=== PATIENT | female | born 1955 | race Caucasian/White ===

== ENCOUNTER 2019-04-24 09:48 | Outpatient (CLI) | payer OTHER, SELFPAY ==
--- NOTE | 2019-04-24 11:00 | NEURO_ITS ---
Patient Number: [id number] Impression: # Complains of left thumb numbness. # Mild evolving left Carpal Tunnel Syndrome. # Left ulnar neuropathy across the elbow. # Normal needle/EMG exam. Nerve Conduction Studies Anti Sensory Summary Table Stim Site NR Peak (ms) P-T Amp (?V) Site1 Site2 Delta-P (ms) Dist (cm) Franko (m/s) Left Median Anti Sensory (2-3nd Digit) Wrist 3.6 57.7 Wrist 2-3nd Digit 3.6 14.0 39 Wrist 3.5 74.1 Wrist 2-3nd Digit 3.6 14.0 39 Left Radial Anti Sensory Run #2 (Base 1st Digit) Wrist 2.7 7.9 Wrist Base 1st Digit 2.7 0.0 Left Ulnar Anti Sensory (5th Digit) Wrist 3.1 10.6 Wrist 5th Digit 3.1 14.0 45 Motor Summary Table Stim Site NR Onset (ms) O-P Amp (mV) Site1 Site2 Delta-0 (ms) Dist (cm) Franko (m/s) Left Median Motor (Abd Poll Brev) Wrist 3.6 4.7 Elbow Wrist 4.7 29.0 62 Elbow 8.3 4.0 Left Ulnar Motor (Abd Dig Minimi) Wrist 2.5 5.7 A Elbow Wrist 5.8 28.0 48 A Elbow 8.3 4.6 B Elbow Wrist 4.0 23.0 58 B Elbow 6.5 5.9 F Wave Studies NR F-Lat (ms) L-R F-Lat (ms) Left Median (Mrkrs) (Abd Poll Brev) 27.27 Left Ulnar (Mrkrs) (Abd Dig Min) 29.23 EMG Side Muscle Nerve Root Ins Act Fibs Amp Dur Recrt Comment Left 1stDorInt Ulnar C8-T1 Nml Nml Nml Nml Nml Left Ext Indicis Radial (Post Int) C7-8 Nml Nml Nml Nml Nml Left Ext Digitorum Radial (Post Int) C7-8 Nml Nml Nml Nml Nml Left BrachioRad Radial C5-6 Nml Nml Nml Nml Nml Left PronatorTeres Median C6-7 Nml Nml Nml Nml Nml Left Abd Poll Brev Median C8-T1 Nml Nml Nml Nml Nml Left ABD Dig Min Ulnar C8-T1 Nml Nml Nml Nml Nml MTDD
== END 2019-04-24 09:49 | disposition home or self-care (01) ==
PROVIDERS: PCP Internal Medicine; Visit Provider Surgery Plastic and Reconstructive Surgery
DX: G56.02 Carpal tunnel syndrome, left upper limb (principal); G56.22 Lesion of ulnar nerve, left upper limb
CPT/HCPCS: 95886; 95909

== ENCOUNTER → 2019-11-09 07:32 | Outpatient (CLI) | payer OTHER, SELFPAY ==
--- NOTE | ~2019-11-09 | US_ITS ---
EXAMINATION: US thyroid DATE: 11/09/2019 07:52 INDICATION: Thyroid nodule. TECHNIQUE: Multiple ultrasound images of the thyroid were obtained. COMPARISON: Thyroid ultrasound 10/02/2018, 03/22/2018 FINDINGS: The right thyroid lobe measures 4.7 x 1.7 x 2.0 cm. The left thyroid lobe measures 4.1 x 1.2 x 1.5 c m. The thyroid demonstrates heterogeneous echogenicity. Vascularity is normal. In the left thyroid l obe, there is a 10 mm solid, hypoechoic, [id number]-[id number] nodule with ill-defined margin without echog enic foci (TI-RADS TR4). In the right thyroid lobe, there is a 9 mm solid, hypoechoic, vhwlw-uhof-cns l nodule with lobulated margin without echogenic foci (TR4). IMPRESSION: 1. Stable thyroid nodules. Thyroid ultrasound is recommended in one year. Reviewed, dictated and finalized at location A.
== END ==
DX: E04.1 Nontoxic single thyroid nodule (principal)
CPT/HCPCS: 76536

== ENCOUNTER 2020-05-11 18:13 | Emergency (ER) | payer OTHER, SELFPAY ==
[2020-05-11 18:45] VITALS: BP 170/87; PULSE 63; RESP 16; TEMP 36.1; O2SAT 97
--- NOTE | 2020-05-11 18:48 | ED.URI ---
HPI - URI/Sore Throat General Chief Complaint: Upper Respiratory Infection Stated Complaint: Runny Nose,Pain over eyes Time Seen by Provider: 05/11/20 18:48 Source: patient, RN notes reviewed and old records reviewed Mode of arrival: ambulatory Limitations: no limitations History of Present Illness HPI Narrative: 65-year-old female presents to the [facility] with complaints of sinus pain and pressure. Has been going on for several weeks. States that she was evaluated in [facility] emergency room was told she had a dental abscess, followed up with a oral surgeon and had evaluation. Patient reports that she had a CT with contrast at [facility] when she was seen in the ER approximately 2 weeks ago and told she had a cyst in her sinuses. Patient denies any fevers. No chest pain or shortness of breath. Just reports that sinuses left maxillary and frontal are very painful. Denies any blurry vision or change in vision. States that she has been taken Keflex with no improvement. Reports that she is seeing a numbers are a [facility] ENT provider rounder about 04 June. No runny nose. No coughing or shortness of breath. Related Data Home Medications Medication Instructions Recorded Confirmed cephalexin 500 mg PO QID 05/11/20 05/11/20 dextroamphetamine-amphetamine 20 mg PO BID 05/11/20 05/11/20 lubiprostone [Amitiza] 24 mcg PO DAILY 05/11/20 05/11/20 omeprazole 20 mg PO DAILY 05/11/20 05/11/20 Allergies Allergy/AdvReac Type Severity Reaction Status Date / Time benzoin Allergy Unknown Unknown Verified 05/11/20 18:38 cefuroxime Allergy Unknown Nausea Verified 05/11/20 18:38 clindamycin Allergy Unknown Nausea Verified 05/11/20 18:38 gatifloxacin Allergy Unknown SORES IN Verified 05/11/20 18:38 MOUTH levofloxacin Allergy Unknown Nausea Verified 05/11/20 18:38 meloxicam Allergy Unknown Unknown Verified 05/11/20 18:38 prednisone Allergy Unknown Other Verified 05/11/20 18:38 Review of Systems Review of Systems: Narrative: CONSTITUTIONAL: Denies fever, chills, or sweats. EYES: Denies visual changes, redness, or discharge. ENT: Denies rhinorrhea, congestion, sore throat, or otalgia. Reports left-sided sinus pain both frontal and max CARDIOVASCULAR: Denies chest pain, palpitations, or edema. RESPIRATORY: Denies cough or dyspnea. MUSCULOSKELETAL: Denies back pain, joint pain, or myalgia. NEUROLOGIC: Denies headache, numbness, or weakness. PSYCHIATRIC: Denies anxiety or depression. All other systems reviewed are negative, except as documented in HPI. [facility] Family History Family History (Reviewed 12/23/19 @ 17:20 by Dinora Cornelius [facility]) Mother Cerebrovascular accident, Onset Age: 86 Patient's mother is Father Family history of malignant neoplasm of bone, Onset Age: 72 Social History Social History (Reviewed 12/23/19 @ 17:20 by Dinora Cornelius [facility]) Smoking status: Never smoker Second hand tobacco smoke exposure: No Smoking end date: 02/21/96 Alcohol intake: current Comments Reports a history of stomach issues and has seen in GI, chronic sinus issues. At the time of my signature, I reviewed and agree with the nursing past medical, surgical, social, and family history. There is no relevant family history pertinent to the patient complaint. Exam Narrative: Exam Narrative: GENERAL: This is a well-nourished, well-developed patient, in no apparent distress. HEAD: normocephalic, atraumatic. EYES: PERRL. Sclera clear/white. Vision is grossly intact. EARS: External ears normal, auditory canals clear and without drainage, TMs normal without perforation. Hearing grossly intact. NOSE: External nose normal with no obvious nasal discharge, nares without redness, no rhinorrhea. Tenderness left sinuses frontal and maxillofacial THROAT: Mucous membranes moist, posterior pharynx clear. NECK: Neck supple, non-tender without lymphadenopathy, masses or thyromegaly. CARDIOVASCULAR: Regular rate and rhy
== END 2020-05-11 19:19 | disposition home or self-care (01) ==
PROVIDERS: Emergency Provider Nurse Practitioner; PCP Internal Medicine
DX: J34.89 Other specified disorders of nose and nasal sinuses (principal); K21.9 Gastro-esophageal reflux disease without esophagitis
CPT/HCPCS: 99213; G0463

== ENCOUNTER 2020-08-13 07:36 | Outpatient (CLI) | payer OTHER, SELFPAY ==
[2020-08-13 07:58] LABS: Basophils Absolute Auto 0.1 K/mm3 (0.0-0.1); Basophils Percent Auto 0.7 % (0.2-1.2); Eosinophils Absolute Auto 0.2 K/mm3 (0-0.3); Eosinophils Percent Auto 3.2 % (0-4.4); Hematocrit 42.4 % (37.0-47.0); Hemoglobin 13.5 g/dL (12.0-15.0); Immature Granulocyte Absolute 0.03 K/mm3 (0.00-0.031); Immature Granulocyte Percent A 0.4 % (0-0.5); Lymphocytes Absolute Auto 2.69 K/mm3 (0.9-3.2); Lymphocytes Percent Auto 37.1 % (18.3-44.2); Mean Corpuscular HGB Conc 31.8 g/dl (32-36); Mean Corpuscular Hemoglobin 29.3 pg (26-34); Mean Platelet Volume 9.6 fl (7.4-10.4); Monocytes Absolute Auto 0.5 K/mm3 (0.1-0.6); Monocytes Percent Auto 7.4 % (2.6-8.5); Neutrophils Absolute Auto 3.7 K/mm3 (1.3-6.7); Neutrophils Percent Auto 51.2 % (45.5-73.1); Platelet Count Result 369 k/mm3 (150-375); Red Blood Count 4.61 M/mm3 (4.2-5.4); Red Cell Distribution Width 13.1 % (11.5-14.5); White Blood Count 7.3 K/mm3 (4.5-10.0)
[2020-08-13 08:09] LABS: Alanine Aminotransferase 18 U/L (4-35); Albumin Level 4.2 g/dL (3.5-5.1); Alkaline Phosphatase 81 U/L (38-126); Anion Gap 3 mmol/L (8-16); Aspartate Amino Transferase 30 U/L (14-36); Bilirubin,Total 0.4 mg/dL (0.2-1.3); Blood Urea Nitrogen 11 mg/dL (7-17); Calcium 9.1 mg/dL (8.4-10.2); Carbon Dioxide 32 mmol/L (22-30); Chloride 105 mmol/L (98-107); Cholesterol 194 mg/dL (0-200); Estimated Glomerular Filt Rate > 60; Glucose 99 mg/dL (65-105); HDL Direct 69 mg/dL; Potassium 4.4 mmol/L (3.4-5.0); Sodium 140 mmol/L (137-145); Triglycerides 88 mg/dL (<150)
[2020-08-13 08:20] LABS: LDL Cholesterol Direct 84 mg/dL
[2020-08-13 09:00] LABS: Free T4 Free Thyroxine 0.87 ng/mL (0.78-2.19)
[2020-08-13 09:16] LABS: Folic Acid 9.8 ng/mL (2.76->20)
== END 2020-08-13 07:37 | disposition home or self-care (01) ==
LOC: ANHLAB 07:41
PROVIDERS: PCP Internal Medicine; Visit Provider Internal Medicine
DX: R53.83 Other fatigue (principal); E03.9 Hypothyroidism, unspecified; Z00.00 Encounter for general adult medical examination without abnormal findings
CPT/HCPCS: 36415; 80053; 80061; 82607; 82746; 84439; 84443; 85025

== ENCOUNTER 2020-08-30 10:16 | Emergency (ER) | payer OTHER, SELFPAY ==
--- NOTE | ~2020-08-30 | XR_ITS ---
EXAMINATION: XR chest 2V DATE: 08/30/2020 11:06 INDICATION: Cough. TECHNIQUE: Frontal and lateral views of the chest were obtained. COMPARISON: Chest single view 07/06/2018, chest CT 09/16/2016 FINDINGS: The chest demonstrates clear lungs without pneumonia, pleural effusion, or pneumothorax. Th e heart size is normal. IMPRESSION: 1. No acute cardiopulmonary disease. Reviewed, dictated and finalized at location A.
[2020-08-30 10:38] VITALS: BP 146/71; PULSE 82; RESP 18; TEMP 37.5; O2SAT 98
--- NOTE | 2020-08-30 10:51 | ED.GENADULT ---
HPI - General Adult General Chief complaint: Upper Respiratory Infection Stated complaint: Cough,Sore Throat Source: patient Mode of arrival: ambulatory Limitations: no limitations History of Present Illness HPI narrative: Patient presents for evaluation of respiratory symptoms. She indicates that 3 days ago she developed a sore throat and right-sided otalgia. The following day she developed a nonproductive cough. She denies any shortness of breath but has experienced some pleuritic chest pain. She reports chills without fever. She also has experienced nausea without vomiting or diarrhea. She indicates she has noted a burning sensation to both nares, light sensitivity, sinus congestion and yellow/green rhinorrhea. No history of Covid. She states that she has received her Covid vaccine back in February of this year. No tobacco use. She states that her niece was visiting from [place] and had some sinus congestion. Her niece told her that her symptoms were likely related to allergies. She is unsure whether her niece has received her Covid vaccine. Patient has been taking some [place] day/nighttime for symptoms. She has not noticed a particular improvement in her symptoms thereafter. Related Data Home Medications Medication Instructions Recorded Confirmed dextroamphetamine-amphetamine 20 mg PO BID 05/11/20 08/30/20 lubiprostone [Amitiza] 24 mcg PO DAILY 05/11/20 08/30/20 omeprazole 20 mg PO DAILY 05/11/20 08/30/20 Allergies Allergy/AdvReac Type Severity Reaction Status Date / Time benzoin Allergy Unknown Unknown Verified 08/17/20 15:06 cefuroxime Allergy Unknown Nausea Verified 08/17/20 15:06 clindamycin Allergy Unknown Nausea Verified 08/17/20 15:06 gatifloxacin Allergy Unknown SORES IN Verified 08/17/20 15:06 MOUTH levofloxacin Allergy Unknown Nausea Verified 08/17/20 15:06 meloxicam Allergy Unknown Unknown Verified 08/17/20 15:06 prednisone Allergy Unknown Other Verified 08/17/20 15:06 Review of Systems Review of Systems: Narrative: CONSTITUTIONAL: Reports chills. Denies fever or sweats. EYES: Reports burning sensation to her eyes with associated redness, as well as photophobia. Denies discharge from her eyes ENT: Reports sinus congestion, yellow/green rhinorrhea, right-sided otalgia and sore throat. CARDIOVASCULAR: Reports pleuritic chest pain. Denies chest pain otherwise, palpitations, or edema. RESPIRATORY: Reports cough. Denies shortness of breath GASTROINTESTINAL: Reports nausea without vomiting. Denies abdominal pain or diarrhea GENITOURINARY: Denies dysuria or hematuria. SKIN: Denies rash or itching. MUSCULOSKELETAL: Denies back pain, joint pain, or myalgia. NEUROLOGIC: Denies headache, numbness, dizziness, or weakness. PSYCHIATRIC: Denies anxiety or depression. PMFSH Past Medical History Medical History (Updated 08/30/20 @ 11:22 by Fredy Car, KAROLINE, ) Esophageal reflux disease Hypothyroidism Surgical History Surgical History (Updated 08/30/20 @ 10:56 by JAN QuanP, ) No pertinent past surgical history Family History Family History Mother Cerebrovascular accident, Onset Age: 86 Patient's mother is Father Family history of malignant neoplasm of bone, Onset Age: 72 Social History Social History Smoking status: Never smoker Second hand tobacco smoke exposure: No Smoking end date: 02/21/96 Alcohol intake: current Exam Narrative: Exam Narrative: GENERAL: Well-appearing, well-nourished, and in no acute distress. HEAD: Normocephalic, atraumatic. EYES: PERRLA and EOMI. ENT: Nares clear, no rhinorrhea or epistaxis. Mucous membranes moist. Oropharynx without tonsillar hypertrophy exudate or other lesions. Right tympanic membrane is erythematous without bulging or retraction. Left TM appears normal NECK: Supple. No
== END 2020-08-30 11:33 | disposition home or self-care (01) ==
PROVIDERS: Emergency Provider Nurse Practitioner; PCP Internal Medicine
DX: J02.0 Streptococcal pharyngitis (principal); Z20.822 Contact with and (suspected) exposure to COVID-19
CPT/HCPCS: 71046; 87426; 87880; 99213; C9803; G0463

== ENCOUNTER 2020-09-26 17:04 | Emergency (ER) | payer OTHER, SELFPAY ==
[2020-09-26 17:14] VITALS: BP 139/85; PULSE 65; RESP 16; TEMP 36.2; O2SAT 100
--- NOTE | 2020-09-26 18:23 | ED.GENADULT ---
HPI - General Adult General Chief complaint: Headache Stated complaint: Sinus Time Seen by Provider: 09/26/20 18:08 Source: patient, RN notes reviewed and old records reviewed Mode of arrival: ambulatory Limitations: no limitations History of Present Illness HPI narrative: Patient presents today complaining of left-sided sinus pressure and nasal congestion x1+ weeks. Denies fever, cough, sore throat. She also reports history of frequent nosebleeds. She has been using a humidifier, saline spray, Flonase, Sudafed without much relief. She has recently taken Augmentin for strep throat approximately 1 month ago. MD complaint: Sinus pressure and pain Related Data Home Medications Medication Instructions Recorded Confirmed dextroamphetamine-amphetamine 20 mg PO BID 05/11/20 09/26/20 lubiprostone [Amitiza] 24 mcg PO DAILY 05/11/20 09/26/20 omeprazole 20 mg PO DAILY 05/11/20 09/26/20 Allergies Allergy/AdvReac Type Severity Reaction Status Date / Time benzoin Allergy Unknown Unknown Verified 09/26/20 17:29 cefuroxime Allergy Unknown Nausea Verified 09/26/20 17:29 clindamycin Allergy Unknown Nausea Verified 09/26/20 17:29 gatifloxacin Allergy Unknown SORES IN Verified 09/26/20 17:29 MOUTH levofloxacin Allergy Unknown Nausea Verified 09/26/20 17:29 meloxicam Allergy Unknown Unknown Verified 09/26/20 17:29 prednisone Allergy Unknown Other Verified 09/26/20 17:29 Review of Systems Review of Systems: CONSTITUTIONAL: Denies body aches, fever, chills, or sweats. EYES: Denies visual changes, redness, or discharge. ENT: Denies rhinorrhea, sore throat, or otalgia.+ Congestion and sinus pressure CARDIOVASCULAR: Denies chest pain, palpitations, or edema. RESPIRATORY: Denies cough or dyspnea. GASTROINTESTINAL: Denies abdominal pain, nausea, vomiting, or diarrhea. GENITOURINARY: Denies dysuria or hematuria. SKIN: Denies rash, itching, or wounds. MUSCULOSKELETAL: Denies back pain, joint pain, or myalgia. NEUROLOGIC: Denies headache, numbness, tingling, or weakness. PSYCH: Denies depression or anxiety. [facility] Past Medical History Medical History Esophageal reflux disease Hypothyroidism Surgical History Surgical History No pertinent past surgical history Family History Family History Mother Cerebrovascular accident, Onset Age: 86 Patient's mother is Father Family history of malignant neoplasm of bone, Onset Age: 72 Social History Social History Smoking status: Never smoker Second hand tobacco smoke exposure: No Smoking end date: 02/21/96 Alcohol intake: current Comments At time of signature, I have reviewed and agree with nursing past medical, surgical, social and family history unless otherwise noted. Please see nursing chart for further information. There is no relevant family history pertinent to the presenting complaint Exam Narrative: GENERAL: Well-appearing, well-nourished, and in no acute distress. HEAD: Normocephalic, atraumatic. EYES: EOMI. No redness or drainage. Conjunctivae normal. ENT: Mucous membranes pink and moist. Nares clear. No rhinorrhea. Dried blood in the left nare. Bilateral mildly erythematous and edematous nasal turbinates. TMs normal bilaterally. Throat normal. Uvula midline. Left frontal and maxillary sinus tenderness. NECK: Normal AROM. Supple. No lymphadenopathy. CHEST: No respiratory distress. Clear to auscultation. HEART: Regular rate and rhythm. No murmur appreciated. Normal peripheral pulses. EXTREMITIES: Normal range of motion. No edema. SKIN: Warm, dry, no rash. Capillary refill normal. Normal skin turgor. NEURO: No focal deficits. Alert and oriented x3. Gait steady. PSYCH: Normal affect. No signs of depre
== END 2020-09-26 18:46 | disposition home or self-care (01) ==
PROVIDERS: Emergency Provider Nurse Practitioner; PCP Internal Medicine
DX: J01.90 Acute sinusitis, unspecified (principal); K21.9 Gastro-esophageal reflux disease without esophagitis; E03.9 Hypothyroidism, unspecified
CPT/HCPCS: 99213; G0463

== ENCOUNTER 2020-10-02 11:48 | Outpatient (CLI) | payer OTHER, SELFPAY ==
--- NOTE | ~2020-10-02 | XR_ITS ---
EXAMINATION: XR shoulder LT min 2V DATE: 10/02/2020 12:20 INDICATION: Sprain of ligaments of cervical spine, initial encounter. TECHNIQUE: 4 views of left shoulder were obtained. COMPARISON: None. FINDINGS: There is levoscoliosis of thoracic spine. No fracture. There is mild osteoarthritis of jenifer ohumeral joint and severe osteoarthritis of acromioclavicular joint IMPRESSION: 1. Polyarticular osteoarthritis. Reviewed, dictated and finalized at location A.
--- NOTE | ~2020-10-02 | XR_ITS ---
XR cervical spine 4-5V DATE: 10/02/2020 12:20 INDICATION: Cervical spine ligament sprain TECHNIQUE: AP, open-mouth, odontoid, lateral, swimmer views COMPARISON: 03/16/2018 MR cervical spine FINDINGS: Diffuse osteopenia. C1 and C2 are normally aligned and the odontoid process is intact. No fracture or dislocation, locked facet or prevertebral soft tissue swelling. There is minimal anterolisthesis at C2-3 and C3-4. There is moderate degenerative disc disease and minimal retrolisthesis at C4-5. There is severe degenerative disc disease and minimal retrolisthesis at C5-6. There is very severe degenerative disc disease at C6-7. Uncovertebral joint spurring is noted, most pronounced at C6-7. There is mild dextro scoliosis of the cervical spine and mild to moderate levoscoliosis of the upper thoracic spine. IMPRESSION: Prominent cervical spondylosis; no fracture is detected Reviewed, dictated and finalized at location A.
== END 2020-10-02 11:49 | disposition home or self-care (01) ==
PROVIDERS: PCP Internal Medicine; Visit Provider Physician Assistant
DX: S13.4XXA Sprain of ligaments of cervical spine, initial encounter (principal); M41.9 Scoliosis, unspecified; M47.812 Spondylosis without myelopathy or radiculopathy, cervical region; M19.012 Primary osteoarthritis, left shoulder
CPT/HCPCS: 72050; 73030

== ENCOUNTER 2021-03-11 07:19 | Outpatient (CLI) | payer OTHER, SELFPAY ==
[2021-03-11 07:42] LABS: Basophils Absolute Auto 0.1 K/mm3 (0.0-0.1); Basophils Percent Auto 0.8 % (0.2-1.2); Eosinophils Absolute Auto 0.2 K/mm3 (0-0.3); Eosinophils Percent Auto 3.4 % (0-4.4); Hematocrit 41.4 % (37.0-47.0); Hemoglobin 13.5 g/dL (12.0-15.0); Immature Granulocyte Absolute 0.01 K/mm3 (0.00-0.031); Immature Granulocyte Percent A 0.2 % (0-0.5); Lymphocytes Absolute Auto 2.25 K/mm3 (0.9-3.2); Lymphocytes Percent Auto 36.5 % (18.3-44.2); Mean Corpuscular HGB Conc 32.6 g/dl (32-36); Mean Corpuscular Hemoglobin 29.2 pg (26-34); Mean Corpuscular Volume 89.4 fl (80-100); Mean Platelet Volume 9.5 fl (7.4-10.4); Monocytes Absolute Auto 0.5 K/mm3 (0.1-0.6); Monocytes Percent Auto 7.6 % (2.6-8.5); Neutrophils Absolute Auto 3.2 K/mm3 (1.3-6.7); Neutrophils Percent Auto 51.5 % (45.5-73.1); Platelet Count Result 384 k/mm3 (150-375); Red Blood Count 4.63 M/mm3 (4.2-5.4); Red Cell Distribution Width 12.9 % (11.5-14.5); White Blood Count 6.2 K/mm3 (4.5-10.0)
[2021-03-11 08:01] LABS: Alanine Aminotransferase 21 U/L (4-35); Albumin Level 4.3 g/dL (3.5-5.1); Alkaline Phosphatase 88 U/L (38-126); Anion Gap 6 mmol/L (8-16); Aspartate Amino Transferase 28 U/L (14-36); Bilirubin,Total 0.6 mg/dL (0.2-1.3); Blood Urea Nitrogen 12 mg/dL (7-17); Carbon Dioxide 31 mmol/L (22-30); Chloride 104 mmol/L (98-107); Cholesterol 187 mg/dL (0-200); Estimated Glomerular Filt Rate > 60; Glucose 100 mg/dL (65-110); HDL Direct 58 mg/dL; Potassium 4.3 mmol/L (3.4-5.0); Sodium 141 mmol/L (137-145); Triglycerides 109 mg/dL (<150)
[2021-03-11 08:12] LABS: LDL Cholesterol Direct 94 mg/dL
[2021-03-11 09:10] LABS: Free T4 Free Thyroxine 0.82 ng/mL (0.78-2.19)
== END 2021-03-11 07:20 | disposition home or self-care (01) ==
LOC: ANHLAB 07:21
PROVIDERS: PCP Internal Medicine; Visit Provider Internal Medicine
DX: E03.9 Hypothyroidism, unspecified (principal); R53.83 Other fatigue; Z00.00 Encounter for general adult medical examination without abnormal findings
CPT/HCPCS: 36415; 80053; 80061; 82607; 82746; 84439; 84443; 85025

== ENCOUNTER 2021-03-21 08:02 | Emergency (ER) | payer OTHER, SELFPAY ==
--- NOTE | 2021-03-21 08:07 | ED.EAR ---
HPI - Ear Problem General Chief complaint: Upper Respiratory Infection Stated complaint: ear pain Time Seen by Provider: 03/21/21 08:10 Source: patient, RN notes reviewed and old records reviewed Mode of arrival: ambulatory Limitations: no limitations History of Present Illness HPI Narrative: 66-year-old female who presents to [facility] with complaints of left ear pain, sinus drainage with soreness to the left side of her throat with some lymphadenopathy on the left side for about 1 week duration. Patient reports that she has been taking some Zyrtec and used some antibiotic ear drops to her left ear that she had left over from the past. Patient states that she feels like she has something in the left side of her throat that is irritating her swallowing. Patient denies any fevers chills or sweats, has no body aches, has had COVID immunizations and booster and also has had her flu shot this season. MD Complaint: ear pain Location: left ear Treatment prior to arrival: eardrops Related Data Home Medications Medication Instructions Recorded Confirmed dextroamphetamine-amphetamine 20 mg PO BID 05/11/20 03/21/21 lubiprostone [Amitiza] 24 mcg PO DAILY 05/11/20 03/21/21 Allergies Allergy/AdvReac Type Severity Reaction Status Date / Time benzoin Allergy Unknown Unknown Verified 03/21/21 08:19 cefuroxime Allergy Unknown Nausea Verified 03/21/21 08:19 clindamycin Allergy Unknown Nausea Verified 03/21/21 08:19 gatifloxacin Allergy Unknown SORES IN Verified 03/21/21 08:19 MOUTH levofloxacin Allergy Unknown Nausea Verified 03/21/21 08:19 meloxicam Allergy Unknown Unknown Verified 03/21/21 08:19 prednisone Allergy Unknown Other Verified 03/21/21 08:19 Review of Systems Review of Systems: CONSTITUTIONAL: Denies fever, chills, or sweats. EYES: Denies visual changes, redness, or discharge. ENT: Positive for rhinorrhea, congestion,left sided sore throat, positive left ear otalgia. CARDIOVASCULAR: Denies chest pain, palpitations, or edema. RESPIRATORY: Denies cough or dyspnea. GASTROINTESTINAL: Denies abdominal pain, nausea, vomiting, or diarrhea. GENITOURINARY: Denies dysuria or hematuria. SKIN: Denies rash or itching. MUSCULOSKELETAL: Denies back pain, joint pain, or myalgia. NEUROLOGIC: Denies headache, numbness, or weakness. PSYCHIATRIC: Positive history anxiety or depression. All systems reviewed & are unremarkable except as noted in HPI and below PMFSH Past Medical History Medical History (Updated 03/21/21 @ 10:36 by Kenna Schreiber NP) ADD (attention deficit disorder) Esophageal reflux disease Hypothyroidism IBS (irritable bowel syndrome) Pneumonia Surgical History Surgical History (Updated 03/21/21 @ 10:35 by Kenna Schreiber NP) H/O bladder repair surgery History of carpal tunnel release with ulnar nerve release on right History of hysterectomy History of medial meniscus repair of right knee S/P excision of lipoma from left clavicale area Family History Family History Mother Cerebrovascular accident, Onset Age: 86 Patient's mother is Father Family history of malignant neoplasm of bone, Onset Age: 72 Social History Social History (Updated 03/21/21 @ 08:32 by Kenna Schreiber NP) Smoking status: Never smoker Second hand tobacco smoke exposure: No Smoking end date: 02/21/96 Alcohol intake: current Substance use: never Living arrangements: alone Gender identity (if verbalized by the patient): Female Comments At time of signature, agree with nursing past medical, surgical, social and family history. There is no relevant family history pertinent to the presenting complaint Exam Narrative: GENERAL: Well-appearing, well-nourished, and in no acute distress. HEAD: Normocephalic, atraumatic. EYES: PERRLA and EOMI. ENT: Nares red and irritated with clear rhinorrhea no epistaxis. Mucous membranes moist. TMs nor
[2021-03-21 08:10] VITALS: BP 155/76; PULSE 62; RESP 16; TEMP 36.4; O2SAT 99
== END 2021-03-21 09:10 | disposition home or self-care (01) ==
PROVIDERS: Emergency Provider Registered Nurse; PCP Internal Medicine
DX: H92.02 Otalgia, left ear (principal); J32.9 Chronic sinusitis, unspecified; E03.9 Hypothyroidism, unspecified; K21.9 Gastro-esophageal reflux disease without esophagitis; F98.8 Other specified behavioral and emotional disorders with onset usually occurring in childhood and adolescence
CPT/HCPCS: 87081; 87880; 99213; G0463

== ENCOUNTER 2021-05-10 19:18 | Emergency (ER) | payer OTHER, SELFPAY ==
[2021-05-10 19:29] VITALS: BP 167/71; PULSE 61; RESP 16; TEMP 36.7; O2SAT 100
[2021-05-10 19:30] VITALS: BP 167/71; PULSE 61; RESP 16; TEMP 36.7; O2SAT 100
--- NOTE | 2021-05-10 19:35 | ED.SKABFB ---
HPI - Skin/Abscess/Foreign Bdy General Chief complaint: Wound/Laceration Stated complaint: Isect Bite Time Seen by Provider: 05/10/21 19:30 Source: patient and RN notes reviewed Mode of arrival: ambulatory Limitations: no limitations History of Present Illness HPI narrative: 66-year-old female presents to the [facility] with complaints of an insect bite to her left upper abdomen. States that she was in the shower when she noticed a bubble. At that time in the shower she popped it and noticed white and clear discharge. Area cleaned with soap and water and Neosporin applied. complaint: insect bite/sting Related Data Home Medications Medication Instructions Recorded Confirmed dextroamphetamine-amphetamine 20 mg PO BID 05/11/20 03/21/21 lubiprostone [Amitiza] 24 mcg PO DAILY 05/11/20 03/21/21 mometasone TOPICAL 05/10/21 prednisolone acetate drp 05/10/21 Allergies Allergy/AdvReac Type Severity Reaction Status Date / Time benzoin Allergy Unknown Unknown Verified 03/21/21 08:19 cefuroxime Allergy Unknown Nausea Verified 03/21/21 08:19 clindamycin Allergy Unknown Nausea Verified 03/21/21 08:19 gatifloxacin Allergy Unknown SORES IN Verified 03/21/21 08:19 MOUTH levofloxacin Allergy Unknown Nausea Verified 03/21/21 08:19 meloxicam Allergy Unknown Unknown Verified 03/21/21 08:19 prednisone Allergy Unknown Other Verified 03/21/21 08:19 Review of Systems Review of Systems: All systems reviewed & are unremarkable except as noted in HPI and below Constitutional: Constitutional: Reports no additional constitutional complaints, Denies chills and Denies fever(s) Eyes: Eyes: Reports no additional eye complaints ENT: Reports system reviewed and no additional complaints, except as documented and Denies sore throat Cardiovascular: Cardiovascular: Reports no additional cardiovascular complaints and Denies chest pain Respiratory: Respiratory: Reports no additional respiratory complaints, Denies cough and Denies dyspnea Gastrointestinal: Gastrointestinal: Reports no additional gastrointestinal complaints and Denies abdominal pain Musculoskeletal: Musculoskeletal: Reports no additional musculoskeletal complaints Integumentary/Breasts: Skin/Breast: Reports as per HPI, Reports pruritus and Reports erythema Neurologic: Reports system reviewed and no additional complaints, except as documented and Denies dizziness Psychiatric: Psychiatric: Reports no additional psychiatric complaints Allergic/Immunologic: Allergic/Immunologic: Reports no additional allergic/immunologic complaints [facility] Past Medical History Medical History (Updated 05/10/21 @ 19:38 by Alissa Marie APRN) ADD (attention deficit disorder) Esophageal reflux disease Hypothyroidism IBS (irritable bowel syndrome) Pneumonia Surgical History Surgical History H/O bladder repair surgery History of carpal tunnel release with ulnar nerve release on right History of hysterectomy History of medial meniscus repair of right knee S/P excision of lipoma from left clavicale area Family History Family History Mother Cerebrovascular accident, Onset Age: 86 Patient's mother is Father Family history of malignant neoplasm of bone, Onset Age: 72 Social History Social History Smoking status: Never smoker Second hand tobacco smoke exposure: No Smoking end date: 02/21/96 Alcohol intake: current Substance use: never Gender identity (if verbalized by the patient): Female Comments At the time of my signature, I reviewed and agree with the nursing past medical, surgical, social, and family history. There is no relevant family history pertinent to the patient complaint. Exam Const: General: healthy appearing, no acute distress and alert Nutritional Appearance: well no
== END 2021-05-10 19:43 | disposition home or self-care (01) ==
PROVIDERS: Emergency Provider Nurse Practitioner; PCP Internal Medicine
DX: S30.861A Insect bite (nonvenomous) of abdominal wall, initial encounter (principal); W57.XXXA Bitten or stung by nonvenomous insect and other nonvenomous arthropods, initial encounter; E03.9 Hypothyroidism, unspecified; K21.9 Gastro-esophageal reflux disease without esophagitis; F98.8 Other specified behavioral and emotional disorders with onset usually occurring in childhood and adolescence
CPT/HCPCS: 99213; G0463

== ENCOUNTER 2021-05-15 09:57 | Emergency (ER) | payer OTHER, SELFPAY ==
[2021-05-15 10:05] VITALS: BP 146/90; PULSE 65; RESP 16; TEMP 36.6; O2SAT 99
--- NOTE | 2021-05-15 10:36 | ED.EAR ---
HPI - Ear Problem General Chief complaint: Ear Stated complaint: EAR PAIN Time Seen by Provider: 05/15/21 10:36 Source: patient Mode of arrival: ambulatory Limitations: no limitations History of Present Illness HPI Narrative: 66-year-old female presents with complaint of pain to left ear for 1 week. Reports that it feels like something is moving into left ear and when she posters around her left ear and makes pain worse. She was seen ENT 2 months ago with similar complaints. At that time she was told that she had a scab in her ear from recent trauma or ear infection that the ENT would not remove for her. Patient has a ENT May 24. No recent fever, no change to hearing. All systems reviewed and negative. Related Data Home Medications Medication Instructions Recorded Confirmed dextroamphetamine-amphetamine 20 mg PO BID 05/11/20 05/15/21 lubiprostone [Amitiza] 24 mcg PO DAILY 05/11/20 05/15/21 prednisolone acetate 3 drp RIGHT EYE DAILY 05/10/21 05/15/21 cetirizine [Zyrtec] 10 mg PO DAILY 05/15/21 05/15/21 pseudoephedrine HCl [Sudafed 12 120 mg PO Q12H 05/15/21 05/15/21 Hour] Allergies Allergy/AdvReac Type Severity Reaction Status Date / Time benzoin Allergy Unknown Unknown Verified 05/15/21 10:24 cefuroxime Allergy Unknown Nausea Verified 05/15/21 10:24 clindamycin Allergy Unknown Nausea Verified 05/15/21 10:24 gatifloxacin Allergy Unknown SORES IN Verified 05/15/21 10:24 MOUTH levofloxacin Allergy Unknown Nausea Verified 05/15/21 10:24 meloxicam Allergy Unknown Unknown Verified 05/15/21 10:24 prednisone Allergy Unknown Other Verified 05/15/21 10:24 Review of Systems Review of Systems: CONSTITUTIONAL: Denies fever, chills, or sweats. EYES: Denies visual changes, redness, or discharge. ENT: Denies rhinorrhea, congestion, sore throat. Reports left ear pain CARDIOVASCULAR: Denies chest pain, palpitations, or edema. RESPIRATORY: Denies cough or dyspnea. GASTROINTESTINAL: Denies abdominal pain, nausea, vomiting, or diarrhea. GENITOURINARY: Denies dysuria or hematuria. SKIN: Denies rash or itching. MUSCULOSKELETAL: Denies back pain, joint pain, or myalgia. NEUROLOGIC: Denies headache, numbness, or weakness. PSYCHIATRIC: Denies anxiety or depression. All other systems reviewed are negative, except as documented in HPI. [facility] Past Medical History Medical History (Updated 05/15/21 @ 10:47 by Sally Lundberg NP) ADD (attention deficit disorder) Esophageal reflux disease Hypothyroidism IBS (irritable bowel syndrome) Pneumonia Surgical History Surgical History H/O bladder repair surgery History of carpal tunnel release with ulnar nerve release on right History of hysterectomy History of medial meniscus repair of right knee S/P excision of lipoma from left clavicale area Family History Family History Mother Cerebrovascular accident, Onset Age: 86 Patient's mother is Father Family history of malignant neoplasm of bone, Onset Age: 72 Social History Social History Smoking status: Never smoker Second hand tobacco smoke exposure: No Smoking end date: 02/21/96 Alcohol intake: current Substance use: never Gender identity (if verbalized by the patient): Female Comments At time of signature, agree with nursing past medical, surgical, social and family history. There is no relevant family history pertinent to the presenting complaint. Exam Narrative: GENERAL: This is a well-nourished, well-developed patient, in no apparent distress. HEAD: normocephalic, atraumatic. EYES: PERRL. Sclera clear/white. Vision is grossly intact. EARS: External ears normal, auditory canals clear and without drainage. There is fluid to both TMs without retraction or bulging. There is no perforation. There is no scab to left ear can
== END 2021-05-15 10:55 | disposition home or self-care (01) ==
PROVIDERS: Emergency Provider Nurse Practitioner Family; PCP Internal Medicine
DX: H65.03 Acute serous otitis media, bilateral (principal); K21.9 Gastro-esophageal reflux disease without esophagitis; E03.9 Hypothyroidism, unspecified; F98.8 Other specified behavioral and emotional disorders with onset usually occurring in childhood and adolescence
CPT/HCPCS: 99213; G0463

== ENCOUNTER 2021-07-08 08:42 | Emergency (ER) | payer OTHER, SELFPAY ==
[2021-07-08 08:53] VITALS: BP 144/83; PULSE 74; RESP 16; TEMP 36.8; O2SAT 100
--- NOTE | 2021-07-08 08:53 | ED.URI ---
HPI - URI/Sore Throat General Chief Complaint: Upper Respiratory Infection Stated Complaint: Cough,Sore Throat Time Seen by Provider: 07/08/21 08:53 Source: patient Mode of arrival: ambulatory Limitations: no limitations History of Present Illness HPI Narrative: 66-year-old female presents with complaint of nasal congestion, postnasal drainage, ear pain, tickle in throat with dry cough. Reports sore throat with coughing. Afebrile. Denies fatigue. Denies chest pain and shortness of breath. Reports symptoms for approximately 2 to 3 days. Did have to call off work and needs a COVID test to return to work. Taking Sudafed to treat her symptoms. All systems reviewed and negative except as noted above. Related Data Home Medications Medication Instructions Recorded Confirmed dextroamphetamine-amphetamine 20 mg PO BID 05/11/20 07/08/21 lubiprostone [Amitiza] 24 mcg PO DAILY 05/11/20 07/08/21 prednisolone acetate 3 drp RIGHT EYE DAILY 05/10/21 07/08/21 Allergies Allergy/AdvReac Type Severity Reaction Status Date / Time benzoin Allergy Unknown Unknown Verified 07/08/21 08:54 cefuroxime Allergy Unknown Nausea Verified 07/08/21 08:54 clindamycin Allergy Unknown Nausea Verified 07/08/21 08:54 gatifloxacin Allergy Unknown SORES IN Verified 07/08/21 08:54 MOUTH levofloxacin Allergy Unknown Nausea Verified 07/08/21 08:54 meloxicam Allergy Unknown Unknown Verified 07/08/21 08:54 prednisone Allergy Unknown Other Verified 07/08/21 08:54 Review of Systems Review of Systems: CONSTITUTIONAL: Denies fever, chills, or sweats. EYES: Denies visual changes, redness, or discharge. ENT: Reports rhinorrhea, congestion, sore throat and bilateral otalgia. CARDIOVASCULAR: Denies chest pain, palpitations, or edema. RESPIRATORY: Reports cough. Denies dyspnea. GASTROINTESTINAL: Denies abdominal pain, nausea, vomiting, or diarrhea. GENITOURINARY: Denies dysuria or hematuria. SKIN: Denies rash or itching. MUSCULOSKELETAL: Denies back pain, joint pain, or myalgia. NEUROLOGIC: Denies headache, numbness, or weakness. PSYCHIATRIC: Denies anxiety or depression. All other systems reviewed are negative, except as documented in HPI. [facility] Past Medical History Medical History (Updated 07/08/21 @ 09:24 by Sally Lundberg NP) ADD (attention deficit disorder) Esophageal reflux disease Hypothyroidism IBS (irritable bowel syndrome) Pneumonia Surgical History Surgical History H/O bladder repair surgery History of carpal tunnel release with ulnar nerve release on right History of hysterectomy History of medial meniscus repair of right knee S/P excision of lipoma from left clavicale area Family History Family History Mother Cerebrovascular accident, Onset Age: 86 Patient's mother is Father Family history of malignant neoplasm of bone, Onset Age: 72 Social History Social History Smoking status: Never smoker Second hand tobacco smoke exposure: No Smoking end date: 02/21/96 Alcohol intake: current Substance use: never Gender identity (if verbalized by the patient): Female Comments At time of signature, agree with nursing past medical, surgical, social and family history. There is no relevant family history pertinent to the presenting complaint. Exam Narrative: GENERAL: This is a well-nourished, well-developed patient, in no apparent distress. HEAD: normocephalic, atraumatic. EYES: PERRL. Sclera clear/white. Vision is grossly intact. EARS: External ears normal, auditory canals clear and without drainage, fluid to bilateral TMs with mild erythema to left TM. No perforation. NOSE: External nose normal with clear nasal drainage with erythema, no significant swelling to nares. THROAT: Mucous membranes moist, erythema to posterior pharynx with clear po
[2021-07-08 08:57] VITALS: BP 144/83; PULSE 74; RESP 16; TEMP 36.8; O2SAT 100
== END 2021-07-08 09:30 | disposition home or self-care (01) ==
PROVIDERS: Emergency Provider Nurse Practitioner Family; PCP Internal Medicine
DX: H65.02 Acute serous otitis media, left ear (principal); J01.90 Acute sinusitis, unspecified; Z20.822 Contact with and (suspected) exposure to COVID-19; F98.8 Other specified behavioral and emotional disorders with onset usually occurring in childhood and adolescence; K21.9 Gastro-esophageal reflux disease without esophagitis; E03.9 Hypothyroidism, unspecified; Z87.891 Personal history of nicotine dependence
CPT/HCPCS: 87426; 99213; C9803; G0463

== ENCOUNTER 2021-08-15 08:02 | Emergency (ER) | payer OTHER, SELFPAY ==
[2021-08-15 08:12] VITALS: BP 138/82; PULSE 89; RESP 16; TEMP 38; O2SAT 98
--- NOTE | 2021-08-15 08:16 | ED.URI ---
HPI - URI/Sore Throat General Chief Complaint: Upper Respiratory Infection Stated Complaint: Sore Throat,Cough Time Seen by Provider: 08/15/21 08:16 Source: patient Mode of arrival: ambulatory Limitations: no limitations History of Present Illness HPI Narrative: 66-year-old female presents with complaint of nasal congestion, sinus pressure, coughing, fatigue, body aches, chills since yesterday. Reports that she had COVID exposure at work on Monday. Had a negative COVID test at work on . Symptoms started yesterday. Denies chest pain and shortness of breath. Is COVID vaccinated. Taking [place] cold and flu to treat symptoms. All systems reviewed and negative except as noted above. Related Data Home Medications Medication Instructions Recorded Confirmed dextroamphetamine-amphetamine 20 20 mg PO BID 05/11/20 08/15/21 mg tablet lubiprostone 24 mcg capsule 24 mcg PO DAILY 05/11/20 08/15/21 (Amitiza) prednisolone acetate 1 % eye 3 drp RIGHT EYE DAILY 05/10/21 08/15/21 drops,suspension Allergies Allergy/AdvReac Type Severity Reaction Status Date / Time benzoin Allergy Unknown Unknown Verified 08/15/21 08:13 cefuroxime Allergy Unknown Nausea Verified 08/15/21 08:13 clindamycin Allergy Unknown Nausea Verified 08/15/21 08:13 gatifloxacin Allergy Unknown SORES IN Verified 08/15/21 08:13 MOUTH levofloxacin Allergy Unknown Nausea Verified 08/15/21 08:13 meloxicam Allergy Unknown Unknown Verified 08/15/21 08:13 prednisone Allergy Unknown Other Verified 08/15/21 08:13 Review of Systems Review of Systems: CONSTITUTIONAL: Denies fever. Reports chills, or sweats. EYES: Denies visual changes, redness, or discharge. ENT: Reports rhinorrhea, congestion, sore throat, or otalgia. CARDIOVASCULAR: Denies chest pain, palpitations, or edema. RESPIRATORY: Reports cough. Denies dyspnea. GASTROINTESTINAL: Denies abdominal pain, nausea, vomiting, or diarrhea. GENITOURINARY: Denies dysuria or hematuria. SKIN: Denies rash or itching. MUSCULOSKELETAL: Denies back pain, joint pain, or myalgia. NEUROLOGIC: Denies headache, numbness, or weakness. PSYCHIATRIC: Denies anxiety or depression. All other systems reviewed are negative, except as documented in HPI. [facility] Past Medical History Medical History (Updated 08/15/21 @ 08:52 by Sally Lundberg NP) ADD (attention deficit disorder) Esophageal reflux disease Hypothyroidism IBS (irritable bowel syndrome) Pneumonia Surgical History Surgical History H/O bladder repair surgery History of carpal tunnel release with ulnar nerve release on right History of hysterectomy History of medial meniscus repair of right knee S/P excision of lipoma from left clavicale area Family History Family History Mother Cerebrovascular accident, Onset Age: 86 Patient's mother is Father Family history of malignant neoplasm of bone, Onset Age: 72 Social History Social History Smoking status: Never smoker Second hand tobacco smoke exposure: No Smoking end date: 02/21/96 Alcohol intake: current Substance use: never Gender identity (if verbalized by the patient): Female Comments At time of signature, agree with nursing past medical, surgical, social and family history. There is no relevant family history pertinent to the presenting complaint. Exam Narrative: GENERAL: This is a well-nourished, well-developed patient, patient is ill-appearing but in no distress. HEAD: normocephalic, atraumatic. EYES: PERRL. Sclera clear/white. Vision is grossly intact. EARS: External ears normal, auditory canals clear and without drainage, mild clear fluid to bilateral TMs. No perforation. NOSE: External nose normal with clear nasal drainage. No erythema or swelling to nares. THROAT: Mucous membrane
== END 2021-08-15 09:02 | disposition home or self-care (01) ==
PROVIDERS: Emergency Provider Nurse Practitioner Family; PCP Internal Medicine
DX: J06.9 Acute upper respiratory infection, unspecified (principal); Z20.822 Contact with and (suspected) exposure to COVID-19; E03.9 Hypothyroidism, unspecified; F98.8 Other specified behavioral and emotional disorders with onset usually occurring in childhood and adolescence; K21.9 Gastro-esophageal reflux disease without esophagitis
CPT/HCPCS: 87081; 87426; 87880; 99213; C9803; G0463

== ENCOUNTER 2021-09-10 07:08 | Outpatient (CLI) | payer OTHER, SELFPAY ==
[2021-09-10 07:38] LABS: Basophils Percent Auto 0.7 % (0.2-1.2); Eosinophils Absolute Auto 0.3 K/mm3 (0-0.3); Eosinophils Percent Auto 5.3 % (0-4.4); Hematocrit 40.7 % (37.0-47.0); Hemoglobin 13.6 g/dL (12.0-15.0); Immature Granulocyte Absolute 0.02 K/mm3 (0.00-0.031); Immature Granulocyte Percent A 0.3 % (0-0.5); Lymphocytes Absolute Auto 2.35 K/mm3 (0.9-3.2); Lymphocytes Percent Auto 39.9 % (18.3-44.2); Mean Corpuscular HGB Conc 33.4 g/dl (32-36); Mean Corpuscular Hemoglobin 29.6 pg (26-34); Mean Corpuscular Volume 88.5 fl (80-100); Mean Platelet Volume 9.1 fl (7.4-10.4); Monocytes Absolute Auto 0.5 K/mm3 (0.1-0.6); Monocytes Percent Auto 7.8 % (2.6-8.5); Neutrophils Absolute Auto 2.7 K/mm3 (1.3-6.7); Platelet Count Result 366 k/mm3 (150-375); Red Cell Distribution Width 13.1 % (11.5-14.5); White Blood Count 5.9 K/mm3 (4.5-10.0)
[2021-09-10 07:51] LABS: Alanine Aminotransferase 20 U/L (6-35); Albumin Level 3.9 g/dL (3.5-5.1); Alkaline Phosphatase 91 U/L (38-126); Anion Gap 3 mmol/L (8-16); Aspartate Amino Transferase 28 U/L (14-36); Bilirubin,Total 0.3 mg/dL (0.2-1.3); Blood Urea Nitrogen 10 mg/dL (7-17); Calcium 8.7 mg/dL (8.4-10.2); Carbon Dioxide 30 mmol/L (22-30); Chloride 107 mmol/L (98-107); Cholesterol 175 mg/dL (0-200); Estimated Glomerular Filt Rate > 60; Glucose 101 mg/dL (65-110); HDL Direct 48 mg/dL; Potassium 4.1 mmol/L (3.4-5.0); Sodium 140 mmol/L (137-145); Triglycerides 57 mg/dL (<150)
[2021-09-10 08:02] LABS: LDL Cholesterol Direct 84 mg/dL
[2021-09-10 08:32] LABS: Free T4 Free Thyroxine 0.81 ng/mL (0.78-2.19)
[2021-09-10 08:56] LABS: Folic Acid 8.3 ng/mL (2.76->20)
[2021-09-18 04:48] LABS: Thyroglobulin 30.2 ng/mL (2.8-40.9); Thyroglobulin Antibodies <1 IU/mL (<=1)
== END 2021-09-10 07:09 | disposition home or self-care (01) ==
LOC: ANHLAB 07:10
PROVIDERS: PCP Internal Medicine; Visit Provider Internal Medicine
DX: E03.9 Hypothyroidism, unspecified (principal); R53.83 Other fatigue; Z00.00 Encounter for general adult medical examination without abnormal findings
CPT/HCPCS: 36415; 80053; 80061; 82607; 82746; 84432; 84439; 84443; 85025; 86800

== ENCOUNTER 2021-11-08 17:34 | Emergency (ER) | payer OTHER, SELFPAY ==
--- NOTE | ~2021-11-08 | XR_ITS ---
EXAM: XR ribs LT 2V DATE: 11/08/2021 18:24 HISTORY: lending over a chair, lt upper side pain, lt ribs . COMPARISON: X-ray chest 08/30/2020. FINDINGS: Decreased mineralization. No fracture or dislocation. No lytic or blastic lesion. Thoracic scoliosis. Multilevel degenerative changes in the thoracic spine. Mild degenerative change in the le ft shoulder. No erosion or periosteal change. Soft tissues within normal limits. IMPRESSION: No acute osseous finding in the left ribs. Reviewed, dictated and finalized at location [facility].
[2021-11-08 17:45] VITALS: BP 179/93; PULSE 63; RESP 18; TEMP 36.1; O2SAT 100
--- NOTE | 2021-11-08 18:05 | ED.GENADULT ---
HPI - General Adult General Chief complaint: Unspecified Stated complaint: Left Side Flank Pain Time Seen by Provider: 11/08/21 18:05 Source: patient, RN notes reviewed and old records reviewed Mode of arrival: ambulatory Limitations: no limitations History of Present Illness HPI narrative: 66-year-old female presents to the [facility] with complaints of left side rib pain after reaching over the arm of her chair. No bruising or swelling noted. Patient has not taken anything for symptoms. Onset (ago): week(s) (1) Related Data Home Medications Medication Instructions Recorded Confirmed dextroamphetamine-amphetamine 20 20 mg PO BID 05/11/20 11/08/21 mg tablet lubiprostone 24 mcg capsule 24 mcg PO DAILY 05/11/20 11/08/21 (Amitiza) nortriptyline 10 mg capsule 10 mg PO DAILY 09/15/21 11/08/21 estradiol 10 mcg vaginal tablet 10 mcg vaginal DAILY 11/08/21 11/08/21 Allergies Allergy/AdvReac Type Severity Reaction Status Date / Time benzoin Allergy Unknown Unknown Verified 11/08/21 17:53 cefuroxime Allergy Unknown Nausea Verified 11/08/21 17:53 clindamycin Allergy Unknown Nausea Verified 11/08/21 17:53 gatifloxacin Allergy Unknown SORES IN Verified 11/08/21 17:53 MOUTH levofloxacin Allergy Unknown Nausea Verified 11/08/21 17:53 meloxicam Allergy Unknown Unknown Verified 11/08/21 17:53 prednisone Allergy Unknown Other Verified 11/08/21 17:53 Review of Systems Review of Systems: All systems reviewed & are unremarkable except as noted in HPI and below Constitutional: Constitutional: Reports no additional constitutional complaints, Denies chills and Denies fever(s) Eyes: Eyes: Reports no additional eye complaints ENT: Reports system reviewed and no additional complaints, except as documented Cardiovascular: Cardiovascular: Reports no additional cardiovascular complaints Respiratory: Respiratory: Reports no additional respiratory complaints Gastrointestinal: Gastrointestinal: Reports no additional gastrointestinal complaints Musculoskeletal: Musculoskeletal: Reports as per HPI Integumentary/Breasts: Skin/Breast: Reports system reviewed and no additional complaints, except as docu Neurologic: Reports system reviewed and no additional complaints, except as documented Psychiatric: Psychiatric: Reports no additional psychiatric complaints Allergic/Immunologic: Allergic/Immunologic: Reports no additional allergic/immunologic complaints [facility] Past Medical History Medical History ADD (attention deficit disorder) Esophageal reflux disease Hypothyroidism IBS (irritable bowel syndrome) Pneumonia Surgical History Surgical History H/O bladder repair surgery History of carpal tunnel release with ulnar nerve release on right History of hysterectomy History of medial meniscus repair of right knee S/P excision of lipoma from left clavicale area Family History Family History Mother Cerebrovascular accident, Onset Age: 86 Patient's mother is Father Family history of malignant neoplasm of bone, Onset Age: 72 Social History Social History Smoking status: Never smoker Second hand tobacco smoke exposure: No Smoking end date: 02/21/96 Alcohol intake: current Substance use: never Gender identity (if verbalized by the patient): Female Comments At the time of my signature, I reviewed and agree with the nursing past medical, surgical, social, and family history. There is no relevant family history pertinent to the patient complaint. 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
== END 2021-11-08 18:50 | disposition home or self-care (01) ==
PROVIDERS: Emergency Provider Nurse Practitioner; PCP Internal Medicine
DX: S20.211A Contusion of right front wall of thorax, initial encounter (principal); X50.9XXA Other and unspecified overexertion or strenuous movements or postures, initial encounter; F98.8 Other specified behavioral and emotional disorders with onset usually occurring in childhood and adolescence; K21.9 Gastro-esophageal reflux disease without esophagitis; E03.9 Hypothyroidism, unspecified
CPT/HCPCS: 71100; 99213; G0463

== ENCOUNTER 2021-12-03 16:57 | Emergency (ER) | payer OTHER, SELFPAY ==
--- NOTE | 2021-12-03 17:05 | ED.URI ---
HPI - URI/Sore Throat General Chief Complaint: Upper Respiratory Infection Stated Complaint: cough, drainage Time Seen by Provider: 12/03/21 17:10 Source: patient and RN notes reviewed Mode of arrival: ambulatory Limitations: no limitations History of Present Illness HPI Narrative: 66-year-old female presents to the [facility] with complaints of dry cough, nasal drainage for 2-1/2 weeks. Had a fever after getting her flu shot on Monday. Denies any chest pain or abdominal pain. Related Data Home Medications Medication Instructions Recorded Confirmed dextroamphetamine-amphetamine 20 20 mg PO BID 05/11/20 11/08/21 mg tablet lubiprostone 24 mcg capsule 24 mcg PO DAILY 05/11/20 11/08/21 (Amitiza) nortriptyline 10 mg capsule 10 mg PO DAILY 09/15/21 11/08/21 estradiol 10 mcg vaginal tablet 10 mcg vaginal DAILY 11/08/21 11/08/21 Allergies Allergy/AdvReac Type Severity Reaction Status Date / Time benzoin Allergy Unknown Unknown Verified 12/03/21 17:20 cefuroxime Allergy Unknown Nausea Verified 12/03/21 17:20 clindamycin Allergy Unknown Nausea Verified 12/03/21 17:20 gatifloxacin Allergy Unknown SORES IN Verified 12/03/21 17:20 MOUTH levofloxacin Allergy Unknown Nausea Verified 12/03/21 17:20 meloxicam Allergy Unknown Unknown Verified 12/03/21 17:20 prednisone Allergy Unknown Other Verified 12/03/21 17:20 Review of Systems Review of Systems: All systems reviewed & are unremarkable except as noted in HPI and below Constitutional: Constitutional: Reports no additional constitutional complaints, Denies chills and Denies fever(s) Eyes: Eyes: Reports no additional eye complaints ENT: Reports as per HPI Cardiovascular: Cardiovascular: Reports no additional cardiovascular complaints Respiratory: Respiratory: Reports as per HPI, Reports chest congestion, Reports cough and Denies dyspnea Gastrointestinal: Gastrointestinal: Reports no additional gastrointestinal complaints Musculoskeletal: Musculoskeletal: Reports no additional musculoskeletal complaints Integumentary/Breasts: Skin/Breast: Reports system reviewed and no additional complaints, except as docu Neurologic: Reports system reviewed and no additional complaints, except as documented Psychiatric: Psychiatric: Reports no additional psychiatric complaints Allergic/Immunologic: Allergic/Immunologic: Reports no additional allergic/immunologic complaints PMFSH Past Medical History Medical History ADD (attention deficit disorder) Esophageal reflux disease Hypothyroidism IBS (irritable bowel syndrome) Pneumonia Surgical History Surgical History H/O bladder repair surgery History of carpal tunnel release with ulnar nerve release on right History of hysterectomy History of medial meniscus repair of right knee S/P excision of lipoma from left clavicale area Family History Family History Mother Cerebrovascular accident, Onset Age: 86 Patient's mother is Father Family history of malignant neoplasm of bone, Onset Age: 72 Social History Social History Smoking status: Never smoker Second hand tobacco smoke exposure: No Smoking end date: 02/21/96 Alcohol intake: current Substance use: never Gender identity (if verbalized by the patient): Female Comments At the time of my signature, I reviewed and agree with the nursing past medical, surgical, social, and family history. There is no relevant family history pertinent to the patient complaint. Exam Const: General: healthy appearing, no acute distress, alert and well nourished Nutritional Appearance: well nourished Orientation/consciousness: patient oriented x3 Limitations: no limitations HENMT: Head: normal to inspection Ears: external ears normal
[2021-12-03 17:06] VITALS: BP 173/86; PULSE 76; RESP 18; TEMP 36.8; O2SAT 98
== END 2021-12-03 17:25 | disposition home or self-care (01) ==
PROVIDERS: Emergency Provider Nurse Practitioner; PCP Internal Medicine
DX: J40 Bronchitis, not specified as acute or chronic (principal); E03.9 Hypothyroidism, unspecified; K21.9 Gastro-esophageal reflux disease without esophagitis; F98.8 Other specified behavioral and emotional disorders with onset usually occurring in childhood and adolescence
CPT/HCPCS: 99213; G0463

== ENCOUNTER 2021-12-17 08:41 | Emergency (ER) | payer OTHER, SELFPAY ==
--- NOTE | 2021-12-17 08:46 | ED.FEMALEGU ---
HPI - Female Genitourinary General Chief complaint: Urogenital-Female Stated complaint: bladder/yeast infection Time Seen by Provider: 12/17/21 09:10 Source: patient and RN notes reviewed Mode of arrival: ambulatory Limitations: no limitations History of Present Illness HPI Narrative: 66-year-old female presents to the [facility] with concern for a UTI, and yeast infection. Patient states she started with burning and urgency and frequency. Tried taking azo to fix her UTI. States she has been on a lot of antibiotics recently and having thick discharge. Also describes it as being very itchy. Reports lower abdominal cramping. No abdominal pain, fevers, chest pain. Denies back pain. Related Data Home Medications Medication Instructions Recorded Confirmed dextroamphetamine-amphetamine 20 20 mg PO BID 05/11/20 11/08/21 mg tablet lubiprostone 24 mcg capsule 24 mcg PO DAILY 05/11/20 11/08/21 (Amitiza) nortriptyline 10 mg capsule 10 mg PO DAILY 09/15/21 11/08/21 estradiol 10 mcg vaginal tablet 10 mcg vaginal DAILY 11/08/21 11/08/21 Allergies Allergy/AdvReac Type Severity Reaction Status Date / Time benzoin Allergy Unknown Unknown Verified 12/03/21 17:20 cefuroxime Allergy Unknown Nausea Verified 12/03/21 17:20 clindamycin Allergy Unknown Nausea Verified 12/03/21 17:20 gatifloxacin Allergy Unknown SORES IN Verified 12/03/21 17:20 MOUTH levofloxacin Allergy Unknown Nausea Verified 12/03/21 17:20 meloxicam Allergy Unknown Unknown Verified 12/03/21 17:20 prednisone Allergy Unknown Other Verified 12/03/21 17:20 Review of Systems Review of Systems: All systems reviewed & are unremarkable except as noted in HPI and below Constitutional: Constitutional: Reports no additional constitutional complaints, Denies chills and Denies fever(s) Eyes: Eyes: Reports no additional eye complaints ENT: Reports system reviewed and no additional complaints, except as documented Cardiovascular: Cardiovascular: Reports no additional cardiovascular complaints Respiratory: Respiratory: Reports no additional respiratory complaints Gastrointestinal: Gastrointestinal: Reports as per HPI Genitourinary: Genitourinary: Reports as per HPI Musculoskeletal: Musculoskeletal: Reports no additional musculoskeletal complaints Integumentary/Breasts: Skin/Breast: Reports system reviewed and no additional complaints, except as docu Neurologic: Reports system reviewed and no additional complaints, except as documented Psychiatric: Psychiatric: Reports no additional psychiatric complaints Allergic/Immunologic: Allergic/Immunologic: Reports no additional allergic/immunologic complaints [facility] Past Medical History Medical History ADD (attention deficit disorder) Esophageal reflux disease Hypothyroidism IBS (irritable bowel syndrome) Pneumonia Surgical History Surgical History H/O bladder repair surgery History of carpal tunnel release with ulnar nerve release on right History of hysterectomy History of medial meniscus repair of right knee S/P excision of lipoma from left clavicale area Family History Family History Mother Cerebrovascular accident, Onset Age: 86 Patient's mother is Father Family history of malignant neoplasm of bone, Onset Age: 72 Social History Social History Smoking status: Never smoker Second hand tobacco smoke exposure: No Smoking end date: 02/21/96 Alcohol intake: current Substance use: never Gender identity (if verbalized by the patient): Female Comments At the time of my signature, I reviewed and agree with the nursing past medical, surgical, social, and family history. There is no relevant family history pertinent to the patient complaint. Exam Cons
[2021-12-17 08:52] VITALS: BP 155/91; PULSE 68; RESP 18; TEMP 36.2; O2SAT 99
[2021-12-17 08:54] VITALS: BP 155/91; PULSE 68; RESP 18; TEMP 36.2; O2SAT 99
== END 2021-12-17 09:27 | disposition home or self-care (01) ==
PROVIDERS: Emergency Provider Nurse Practitioner; PCP Internal Medicine
DX: N39.0 Urinary tract infection, site not specified (principal); N76.0 Acute vaginitis; E03.9 Hypothyroidism, unspecified
CPT/HCPCS: 81003; 87077; 87086; 87186; 99213; G0463

== ENCOUNTER 2022-01-08 19:21 | Emergency (ER) | payer OTHER, SELFPAY ==
--- NOTE | 2022-01-08 20:23 | ED.GENADULT ---
HPI - General Adult General Chief complaint: Unspecified Stated complaint: uti Time Seen by Provider: 01/08/22 20:24 Source: patient Mode of arrival: ambulatory Limitations: no limitations History of Present Illness HPI narrative: This 6-year-old female patient presents to the [facility] with complaints of vaginal irritation for the past 2-3 days. Patient states that 2 weeks ago she was treated for a UTI and developed a yeast infection. Patient states she had a 1 time dose of fluconazole but states that she feels like it did not really do anything and continues to have some irritation to the vaginal area with redness. Patient states she also has urinary frequency at times but nothing consistent. Related Data Home Medications Medication Instructions Recorded Confirmed dextroamphetamine-amphetamine 20 20 mg PO BID 05/11/20 01/03/22 mg tablet lubiprostone 24 mcg capsule 24 mcg PO DAILY 05/11/20 01/03/22 (Amitiza) nortriptyline 10 mg capsule 10 mg PO DAILY 09/15/21 01/03/22 estradiol 10 mcg vaginal tablet 10 mcg vaginal DAILY 11/08/21 01/03/22 Allergies Allergy/AdvReac Type Severity Reaction Status Date / Time benzoin Allergy Unknown Unknown Verified 01/03/22 10:02 cefuroxime Allergy Unknown Nausea Verified 01/03/22 10:02 clindamycin Allergy Unknown Nausea Verified 01/03/22 10:02 gatifloxacin Allergy Unknown SORES IN Verified 01/03/22 10:02 MOUTH levofloxacin Allergy Unknown Nausea Verified 01/03/22 10:02 meloxicam Allergy Unknown Unknown Verified 01/03/22 10:02 prednisone Allergy Unknown Other Verified 01/03/22 10:02 Review of Systems Review of Systems: CONSTITUTIONAL: Denies fever, chills, or sweats. EYES: Denies visual changes, redness, or discharge. ENT: Denies rhinorrhea, congestion, sore throat, or otalgia. CARDIOVASCULAR: Denies chest pain, palpitations, or edema. RESPIRATORY: Denies cough or dyspnea. GASTROINTESTINAL: Denies abdominal pain, nausea, vomiting, or diarrhea. GENITOURINARY: Denies dysuria or hematuria. Vaginal irritation type 2 to 3 days SKIN: Denies rash or itching. MUSCULOSKELETAL: Denies back pain, joint pain, or myalgia. NEUROLOGIC: Denies headache, numbness, or weakness. PSYCHIATRIC: Denies anxiety or depression. [facility] Past Medical History Medical History ADD (attention deficit disorder) Esophageal reflux disease Hypothyroidism IBS (irritable bowel syndrome) Pneumonia Surgical History Surgical History H/O bladder repair surgery History of carpal tunnel release with ulnar nerve release on right History of hysterectomy History of medial meniscus repair of right knee S/P excision of lipoma from left clavicale area Family History Family History Mother Cerebrovascular accident, Onset Age: 86 Patient's mother is Father Family history of malignant neoplasm of bone, Onset Age: 72 Social History Social History Smoking status: Never smoker Second hand tobacco smoke exposure: No Smoking end date: 02/21/96 Alcohol intake: current Substance use: never Gender identity (if verbalized by the patient): Female Comments At the time of my signature I agree with nursing past medical history, surgical, social, and family history. There is no relevant family history pertinent to the presenting complaint. Exam Narrative: GENERAL: Well-appearing, well-nourished, and in no acute distress. HEAD: Normocephalic, atraumatic. EYES: PERRLA and EOMI. ENT: Nares clear, no rhinorrhea or epistaxis. Mucous membranes moist. NECK: Supple. No lymphadenopathy CHEST: Clear to auscultation. No respiratory distress. HEART: Regular rate and rhythm. No murmur heard. Normal peripheral pulses. ABDOMEN: Soft, nontender, nondistended, normal active bowel sounds
[2022-01-08 20:25] VITALS: BP 159/78; PULSE 61; RESP 18; TEMP 36.1; O2SAT 99
== END 2022-01-08 21:13 | disposition home or self-care (01) ==
PROVIDERS: Emergency Provider Nurse Practitioner Family; PCP Internal Medicine
DX: B37.31 Acute candidiasis of vulva and vagina (principal); K21.9 Gastro-esophageal reflux disease without esophagitis; E03.9 Hypothyroidism, unspecified; F98.8 Other specified behavioral and emotional disorders with onset usually occurring in childhood and adolescence
CPT/HCPCS: 81003; 87070; 87086; 99213; G0463

== ENCOUNTER 2022-02-25 12:57 | Emergency (ER) | payer OTHER, SELFPAY ==
--- NOTE | ~2022-02-25 | XR_ITS ---
Supine view of the abdomen Clinical history: Constipation Findings: Bowel gas pattern is nonspecific. Large stool burden present. No evidence for obstruction o r free air. No abnormal mass lesion or calcification is seen. Osseous structures are intact. Impression: Large stool burden, compatible with constipation, especially right colon, left colon, and sigmoid col on. Reviewed, dictated and finalized at [facility]. 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
--- NOTE | 2022-02-25 13:05 | PC.NURSE ---
in br to obtain ua spec.
[2022-02-25 13:13] VITALS: BP 146/73; PULSE 61; RESP 16; TEMP 36.8; O2SAT 99
--- NOTE | 2022-02-25 13:24 | ED.BACK ---
HPI - Back Pain/Injury General Chief Complaint: Back Pain/Injury Stated Complaint: left side /back pain Time Seen by Provider: 02/25/22 13:24 Source: patient, RN notes reviewed and old records reviewed Mode of arrival: ambulatory Limitations: no limitations History of Present Illness HPI Narrative: 66 year old [facility] complaints of left flank pain raditing to her left abdomen for the past week. Patient states that she went to [facility] ER because her GI doctor was there and left because there was a 7 hour wait. Patient reports that she has history of IBS and that she has felt bloated and feels like abdomen is swollen, denies any nausea or vomiting or any fevers chills or sweats. Was previously on Amitiza but quit taking it because she was having such diarrhea from it.i MD elicited complaint: back pain (left side radiates to abdomen) Onset (ago): week(s) (1) Pain scale (0-10): 8 Related Data Home Medications Medication Instructions Recorded Confirmed dextroamphetamine-amphetamine 20 20 mg PO BID 05/11/20 01/03/22 mg tablet lubiprostone 24 mcg capsule 24 mcg PO DAILY 05/11/20 01/03/22 (Amitiza) estradiol 10 mcg vaginal tablet 10 mcg vaginal DAILY 11/08/21 01/03/22 oxybutynin chloride 10 mg mg PO 02/25/22 tablet,extended release 24 hr Allergies Allergy/AdvReac Type Severity Reaction Status Date / Time benzoin Allergy Unknown Unknown Verified 02/25/22 13:03 cefuroxime Allergy Unknown Nausea Verified 02/25/22 13:03 clindamycin Allergy Unknown Nausea Verified 02/25/22 13:03 gatifloxacin Allergy Unknown SORES IN Verified 02/25/22 13:03 MOUTH levofloxacin Allergy Unknown Nausea Verified 02/25/22 13:03 meloxicam Allergy Unknown Unknown Verified 02/25/22 13:03 prednisone Allergy Unknown Other Verified 02/25/22 13:03 Review of Systems Review of Systems: CONSTITUTIONAL: Denies fever, chills, or sweats. CARDIOVASCULAR: Denies chest pain, palpitations, or edema. RESPIRATORY: Denies cough or dyspnea. GASTROINTESTINAL: reports left abdominal pain with bloating no nausea, vomiting, or diarrhea. GENITOURINARY: Denies dysuria or hematuria. SKIN: Denies rash or itching. MUSCULOSKELETAL: Reports back pain left sided radiating to left abdomen, no joint pain or myalgia.no CVA tenderness NEUROLOGIC: Denies headache, numbness, or weakness. All systems reviewed & are unremarkable except as noted in HPI and below PMFSH Past Medical History Medical History ADD (attention deficit disorder) Esophageal reflux disease Hypothyroidism IBS (irritable bowel syndrome) Pneumonia Surgical History Surgical History H/O bladder repair surgery History of carpal tunnel release with ulnar nerve release on right History of hysterectomy History of medial meniscus repair of right knee S/P excision of lipoma from left clavicale area Family History Family History Mother Cerebrovascular accident, Onset Age: 86 Patient's mother is Father Family history of malignant neoplasm of bone, Onset Age: 72 Social History Social History Smoking status: Never smoker Second hand tobacco smoke exposure: No Smoking end date: 02/21/96 Alcohol intake: current Substance use: never Gender identity (if verbalized by the patient): Female Comments At time of signature, agree with nursing past medical, surgical, social and family history. There is no relevant family history pertinent to the presenting complaint Exam Narrative: GENERAL: Well-appearing, well-nourished, and in no acute distress.anxious HEAD: Normocephalic, atraumatic. EYES: PERRLA and EOMI. NECK: Supple. No lymphadenopathy. CHEST: Clear to auscultation. No respiratory distress. HEART: Regular
== END 2022-02-25 14:30 | disposition home or self-care (01) ==
PROVIDERS: Emergency Provider Registered Nurse
DX: K58.1 Irritable bowel syndrome with constipation (principal); Z87.891 Personal history of nicotine dependence; E03.9 Hypothyroidism, unspecified; F98.8 Other specified behavioral and emotional disorders with onset usually occurring in childhood and adolescence; K21.9 Gastro-esophageal reflux disease without esophagitis
CPT/HCPCS: 74018; 81003; 99213; G0463

== ENCOUNTER 2022-06-17 08:14 | Emergency (ER) | payer OTHER, SELFPAY ==
[2022-06-17 08:36] VITALS: BP 139/74; PULSE 65; RESP 16; TEMP 36.7; O2SAT 99
--- NOTE | 2022-06-17 08:39 | ED.FEMALEGU ---
HPI - Female Genitourinary General Chief complaint: Urogenital-Female Stated complaint: Bladder infection Time Seen by Provider: 06/17/22 08:43 Source: patient and RN notes reviewed Mode of arrival: ambulatory Limitations: no limitations History of Present Illness HPI Narrative: 67-year-old female presented for complaint of burning with urination, frequency, urgency, and pressure over the last 3 days. Took AZO without relief. Denies abdominal pain, flank pain or vaginal symptoms, n/v/d/f/c. States symptoms started after reducing water intake and drinking more cola. Related Data Home Medications Medication Instructions Recorded Confirmed dextroamphetamine-amphetamine 20 20 mg PO BID 05/11/20 06/17/22 mg tablet lubiprostone 24 mcg capsule 24 mcg PO DAILY 05/11/20 06/17/22 (Amitiza) estradiol 10 mcg vaginal tablet 10 mcg vaginal DAILY 11/08/21 06/17/22 solifenacin 10 mg tablet 5 mg PO DAILY 03/22/22 06/17/22 Allergies Allergy/AdvReac Type Severity Reaction Status Date / Time benzoin Allergy Unknown Unknown Verified 06/17/22 08:30 cefuroxime Allergy Unknown Nausea Verified 06/17/22 08:30 clindamycin Allergy Unknown Nausea Verified 06/17/22 08:30 gatifloxacin Allergy Unknown SORES IN Verified 06/17/22 08:30 MOUTH levofloxacin Allergy Unknown Nausea Verified 06/17/22 08:30 meloxicam Allergy Unknown Unknown Verified 06/17/22 08:30 prednisone Allergy Unknown Other Verified 06/17/22 08:30 Review of Systems Review of Systems: CONSTITUTIONAL: Denies body aches, fever, chills, or sweats. CARDIOVASCULAR: Denies chest pain, palpitations, or edema. RESPIRATORY: Denies cough or dyspnea. GASTROINTESTINAL: Denies abdominal pain, nausea, vomiting, or diarrhea. GENITOURINARY: Reports dysuria, frequency, urgency, denies hematuria, flank pain SKIN: Denies rash, itching, or wounds. MUSCULOSKELETAL: Denies back pain or myalgia. [facility] Past Medical History Medical History ADD (attention deficit disorder) Esophageal reflux disease Hypothyroidism IBS (irritable bowel syndrome) Pneumonia Surgical History Surgical History H/O bladder repair surgery History of carpal tunnel release with ulnar nerve release on right History of hysterectomy History of medial meniscus repair of right knee S/P excision of lipoma from left clavicale area Family History Family History Mother Cerebrovascular accident, Onset Age: 86 Patient's mother is Father Family history of malignant neoplasm of bone, Onset Age: 72 Social History Social History Smoking status: Never smoker Second hand tobacco smoke exposure: No Smoking end date: 02/21/96 Alcohol intake: current Substance use: never Current Housing: Decline to Answer Concerned About Future Housing: Decline to Answer Difficulty Paying Gas/Electric Bills: Decline to Answer Difficulty Paying for Meds: Decline to Answer Currently Unemployed: Decline to Answer Education: Decline to Answer Difficulty w/ Childcare or Family Care: Decline to Answer Living arrangements: alone Gender identity (if verbalized by the patient): Female Comments At time of signature, I have reviewed and agree with nursing past medical, surgical, social and family history unless otherwise noted. Please see nursing chart for further information. There is no relevant family history pertinent to the presenting complaint Exam Narrative: GENERAL: Well-appearing and in no acute distress. HEAD: Normocephalic EYES: EOMI. . ENT: Mucous membranes pink and moist. CHEST: No respiratory distress. Clear to auscultation. HEART: Regular rate and rhythm. ABDOMEN: Soft, nontender, nondistended, normal active bowel sounds. No CVA tenderness SKIN:
== END 2022-06-17 09:00 | disposition home or self-care (01) ==
PROVIDERS: Emergency Provider Nurse Practitioner Family; PCP Internal Medicine
DX: N39.0 Urinary tract infection, site not specified (principal); Z87.891 Personal history of nicotine dependence; K21.9 Gastro-esophageal reflux disease without esophagitis; E03.9 Hypothyroidism, unspecified; F98.8 Other specified behavioral and emotional disorders with onset usually occurring in childhood and adolescence
CPT/HCPCS: 81003; 87077; 87086; 87186; 99213; G0463

== ENCOUNTER 2022-07-29 07:03 | Outpatient (CLI) | payer OTHER, SELFPAY ==
[2022-07-29 07:22] LABS: Basophils Absolute Auto 0.1 K/mm3 (0.0-0.1); Basophils Percent Auto 0.9 % (0.2-1.2); Eosinophils Absolute Auto 0.4 K/mm3 (0-0.3); Eosinophils Percent Auto 6.2 % (0-4.4); Hematocrit 42.4 % (37.0-47.0); Hemoglobin 13.6 g/dL (12.0-15.0); Immature Granulocyte Absolute 0.01 K/mm3 (0.00-0.031); Immature Granulocyte Percent A 0.1 % (0-0.5); Lymphocytes Absolute Auto 2.41 K/mm3 (0.9-3.2); Lymphocytes Percent Auto 35.8 % (18.3-44.2); Mean Corpuscular HGB Conc 32.1 g/dl (32-36); Mean Corpuscular Hemoglobin 29.3 pg (26-34); Mean Corpuscular Volume 91.4 fl (80-100); Mean Platelet Volume 9.4 fl (7.4-10.4); Monocytes Absolute Auto 0.5 K/mm3 (0.1-0.6); Monocytes Percent Auto 7.6 % (2.6-8.5); Neutrophils Absolute Auto 3.3 K/mm3 (1.3-6.7); Neutrophils Percent Auto 49.4 % (45.5-73.1); Platelet Count Result 364 k/mm3 (150-375); Red Blood Count 4.64 M/mm3 (4.2-5.4); White Blood Count 6.7 K/mm3 (4.5-10.0)
[2022-07-29 07:39] LABS: Alanine Aminotransferase 27 U/L (6-35); Albumin Level 4.4 g/dL (3.5-5.1); Alkaline Phosphatase 95 U/L (38-126); Anion Gap 1 mmol/L (8-16); Aspartate Amino Transferase 30 U/L (14-36); Bilirubin,Total 0.4 mg/dL (0.2-1.3); Blood Urea Nitrogen 12 mg/dL (7-17); Calcium 9.3 mg/dL (8.4-10.2); Carbon Dioxide 36 mmol/L (22-30); Chloride 101 mmol/L (98-107); Cholesterol 180 mg/dL (0-200); Estimated Glomerular Filt Rate > 60; Glucose 105 mg/dL (65-110); HDL Direct 54 mg/dL; Potassium 5.5 mmol/L (3.4-5.0); Sodium 138 mmol/L (137-145); Triglycerides 80 mg/dL (<150)
[2022-07-29 07:50] LABS: LDL Cholesterol Direct 95 mg/dL
[2022-07-29 08:03] LABS: Free T4 Free Thyroxine 0.87 ng/mL (0.78-2.19)
[2022-07-29 08:44] LABS: Folic Acid 11.2 ng/mL (2.76->20)
== END 2022-07-29 07:04 | disposition home or self-care (01) ==
PROVIDERS: PCP Internal Medicine; Visit Provider Internal Medicine
DX: E03.9 Hypothyroidism, unspecified (principal); R53.83 Other fatigue
CPT/HCPCS: 36415; 80053; 80061; 82607; 82746; 84439; 84443; 85025

== ENCOUNTER 2022-11-28 17:17 | Outpatient (CLI) | payer OTHER, SELFPAY ==
--- NOTE | ~2022-11-28 | XR_ITS ---
Thoracic spine: Clinical Indication: Back pain AP and lateral views were performed. No fracture is seen. There is normal alignment of the vertebrae. The intervertebral disc spaces appe ar normal. Paravertebral soft tissues appear normal. Impression: No significant abnormalities noted. Reviewed, dictated and finalized at [facility]. Impression: No significant abnormalities noted.
--- NOTE | ~2022-11-28 | XR_ITS ---
Lumbosacral Spine: AP and lateral views Clinical History: Pain Findings: The normal lordotic curve is maintained. No fracture identified. There is 4 mm anterolisthe sis of L3 over L4. There is advanced degenerative disc narrowing at L2-L3 and L4-L5. There is moderat e to advanced facet arthropathy, especially from L3 through S1. The sacroiliac joints are normally ou tlined. Impression: Moderate degenerative spondylosis, as above. 4 mm anterolisthesis of L3 over L4. Reviewed, dictated and finalized at location [facility]. Impression: Moderate degenerative spondylosis, as above. 4 mm anterolisthesis of L3 over L4.
== END 2022-11-28 17:18 | disposition home or self-care (01) ==
LOC: ANHIMG 17:19
PROVIDERS: PCP Internal Medicine; Visit Provider Internal Medicine
DX: M54.9 Dorsalgia, unspecified (principal); M47.816 Spondylosis without myelopathy or radiculopathy, lumbar region
CPT/HCPCS: 72070; 72100

== ENCOUNTER 2023-01-06 06:59 | Outpatient (CLI) | payer OTHER, SELFPAY ==
[2023-01-06 07:36] LABS: Basophils Percent Auto 0.7 % (0.2-1.2); Eosinophils Absolute Auto 0.2 K/mm3 (0-0.3); Eosinophils Percent Auto 4.1 % (0-4.4); Hematocrit 43.1 % (37.0-47.0); Hemoglobin 13.6 g/dL (12.0-15.0); Immature Granulocyte Absolute 0.02 K/mm3 (0.00-0.031); Immature Granulocyte Percent A 0.3 % (0-0.5); Lymphocytes Absolute Auto 2.07 K/mm3 (0.9-3.2); Lymphocytes Percent Auto 35.2 % (18.3-44.2); Mean Corpuscular HGB Conc 31.6 g/dl (32-36); Mean Corpuscular Hemoglobin 29.2 pg (26-34); Mean Corpuscular Volume 92.7 fl (80-100); Mean Platelet Volume 9.8 fl (7.4-10.4); Monocytes Absolute Auto 0.5 K/mm3 (0.1-0.6); Monocytes Percent Auto 7.8 % (2.6-8.5); Neutrophils Absolute Auto 3.1 K/mm3 (1.3-6.7); Neutrophils Percent Auto 51.9 % (45.5-73.1); Platelet Count Result 344 k/mm3 (150-375); Red Blood Count 4.65 M/mm3 (4.2-5.4); Red Cell Distribution Width 12.8 % (11.5-14.5); White Blood Count 5.9 K/mm3 (4.5-10.0)
[2023-01-06 07:47] LABS: Alanine Aminotransferase 24 U/L (6-35); Albumin Level 4.3 g/dL (3.5-5.1); Alkaline Phosphatase 85 U/L (38-126); Anion Gap 10 mmol/L (8-16); Aspartate Amino Transferase 28 U/L (14-36); Bilirubin,Total 0.5 mg/dL (0.2-1.3); Blood Urea Nitrogen 13 mg/dL (7-17); Calcium 8.9 mg/dL (8.4-10.2); Carbon Dioxide 27 mmol/L (22-30); Chloride 104 mmol/L (98-107); Cholesterol 197 mg/dL (0-200); Estimated Glomerular Filt Rate > 60; Glucose 108 mg/dL (65-110); HDL Direct 56 mg/dL; Potassium 4.3 mmol/L (3.4-5.0); Sodium 141 mmol/L (137-145); Triglycerides 71 mg/dL (<150)
[2023-01-06 07:57] LABS: LDL Cholesterol Direct 101 mg/dL
[2023-01-06 08:16] LABS: Free T4 Free Thyroxine 0.91 ng/mL (0.78-2.19)
[2023-01-11 05:02] LABS: Thyroid Peroxidase Antibodies <1 IU/mL (<9)
[2023-01-11 10:18] LABS: Immunoglobulin A 140 mg/dL (70-320); TTG IGA AB <1.0 U/mL (<15.0)
== END 2023-01-06 07:00 | disposition home or self-care (01) ==
PROVIDERS: Physician Assistant; PCP Internal Medicine; Visit Provider Internal Medicine
DX: K58.9 Irritable bowel syndrome, unspecified (principal); E03.9 Hypothyroidism, unspecified; R53.83 Other fatigue; R74.8 Abnormal levels of other serum enzymes
CPT/HCPCS: 36415; 80053; 80061; 82784; 84439; 84443; 85025; 86364; 86376; 86800

== ENCOUNTER → 2023-02-17 15:17 | Outpatient (CLI) | payer OTHER, SELFPAY ==
--- NOTE | ~2023-02-17 | MR_ITS ---
EXAMINATION: MR abdomen wo/w con DATE: 02/17/2023 16:24 INDICATION: Abdominal pain TECHNIQUE: Magnetic resonance imaging (MRI) of the abdomen was performed without and with 14 mL Multi glendy intravenous contrast. Sequences included coronal T2-weighted SS-FSE, coronal and axial FS 2D-F IESTA, axial STIR FSE, axial T2-weighted SS-FSE, axial T2-weighted FS SS-FSE, axial diffusion-weighte d SE, axial dual-echo T1-weighted FSPGR, and axial and coronal T1-weighted LAVA. Postcontrast axial T 1-weighted LAVA images were obtained in a time course. Postcontrast coronal T1-weighted LAVA images w ere obtained. COMPARISON: Ultrasound dated 09/24/2014 FINDINGS: Arch size is normal. No pericardial or pleural effusion. There are multiple T2 hyperintense nonenhanc ing cysts scattered throughout the liver comminuted largest measuring up to 2.7 cm gallbladder is not visualized consistent with interval cholecystectomy. No intra or extrahepatic biliary ductal dilatio n. Pancreas, spleen and bilateral adrenal glands are normal. A few bilateral subcentimeter T2 hyperin tense nonenhancing renal cysts. Visualized bowels are unremarkable. No pathologically enlarged abdomi nal lymphadenopathy. Mild lumbar levocurvature with moderate to severe spondylosis. T1 hyperintense h emangioma at T12. IMPRESSION: 1. Numerous cysts scattered throughout the liver and a few bilateral renal cysts. Reviewed, dictated and finalized at location [facility]. [employer] IMPRESSION: 1. Numerous cysts scattered throughout the liver and a few bilateral renal cyst s.
== END ==
PROVIDERS: PCP Physician Assistant; Visit Provider Physician Assistant
DX: R10.9 Unspecified abdominal pain (principal); K76.89 Other specified diseases of liver; N28.1 Cyst of kidney, acquired
CPT/HCPCS: 74183; A9577

== ENCOUNTER 2023-02-25 08:08 | Emergency (ER) | payer OTHER, SELFPAY ==
--- NOTE | 2023-02-25 08:11 | ED.URI ---
HPI - URI/Sore Throat General Chief Complaint: Ear Stated Complaint: Sinus/Right Ear Irritation Time Seen by Provider: 02/25/23 08:33 Source: patient and RN notes reviewed Mode of arrival: ambulatory Limitations: no limitations History of Present Illness HPI Narrative: 67-year-old female presents with concern for right ear pain, sinus congestion, pain. Reports she had COVID about 2 weeks ago, she reports the symptoms have been present since then. She took COVID antiviral. She reports she has been taking Mucinex DM without relief. MD elicited complaint: nasal congestion and sinus pain Related Data Home Medications Medication Instructions Recorded Confirmed dextroamphetamine-amphetamine 20 20 mg PO DIRECTED 05/11/20 02/25/23 mg tablet estradiol 10 mcg vaginal tablet 10 mcg vaginal DIRECTED 11/08/21 02/25/23 Allergies Allergy/AdvReac Type Severity Reaction Status Date / Time benzoin Allergy Unknown Unknown Verified 02/25/23 08:22 cefuroxime Allergy Unknown Nausea Verified 02/25/23 08:22 clindamycin Allergy Unknown Nausea Verified 02/25/23 08:22 gatifloxacin Allergy Unknown SORES IN Verified 02/25/23 08:22 MOUTH levofloxacin Allergy Unknown Nausea Verified 02/25/23 08:22 meloxicam Allergy Unknown Unknown Verified 02/25/23 08:22 prednisone Allergy Unknown Other Verified 02/25/23 08:22 Review of Systems Review of Systems: CONSTITUTIONAL: Reports malaise. Denies chills, sweats, or fever. EYES: Denies visual changes, redness, or discharge. ENT: Reports rhinorrhea, congestion, sinus pain, otalgia CARDIOVASCULAR: Denies chest pain, palpitations, or edema. RESPIRATORY: Denies cough. Denies dyspnea. GASTROINTESTINAL: Denies abdominal pain, nausea, vomiting, diarrhea SKIN: Denies rash or itching. MUSCULOSKELETAL: Denies myalgia. NEUROLOGIC: Reports headache. All systems reviewed & are unremarkable except as noted in HPI and below PMFSH Past Medical History Medical History (Updated 02/25/23 @ 08:39 by Alissa Montalvo NP) ADD (attention deficit disorder) Esophageal reflux disease Hypothyroidism IBS (irritable bowel syndrome) Pneumonia Surgical History Surgical History (Updated 08/01/22 @ 16:35 by Judah Menendez MA) H/O bladder repair surgery History of carpal tunnel release with ulnar nerve release on right History of cholecystectomy 04/05/22 History of hysterectomy History of medial meniscus repair of right knee S/P excision of lipoma from left clavicale area Family History Family History Mother Cerebrovascular accident, Onset Age: 86 Patient's mother is Father Family history of malignant neoplasm of bone, Onset Age: 72 Social History Social History Smoking status: Never smoker Second hand tobacco smoke exposure: No Smoking end date: 02/21/96 Alcohol intake: current Substance use: never Current Housing: Decline to Answer Concerned About Future Housing: Decline to Answer Difficulty Paying Gas/Electric Bills: Decline to Answer Difficulty Paying for Meds: Decline to Answer Currently Unemployed: Decline to Answer Education: Decline to Answer Difficulty w/ Childcare or Family Care: Decline to Answer Living arrangements: alone Gender identity (if verbalized by the patient): Female Comments At time of signature, agree with nursing past medical, surgical, social and family history. There is no relevant family history pertinent to the presenting complaint Exam Narrative: GENERAL: Nontoxic-appearing, well-nourished, and in no acute distress. HEAD: Normocephalic EYES: PERRLA, conjunctivae clear ENT: Nares clear, turbinates edematous and erythematous. Mucous membranes moist. TM pearly kearney with dull light reflex bilaterally; no tragal tenderness. Oropharynx not erythematous without lesions. Tonsils not enlarged and without exudat
[2023-02-25 08:18] VITALS: BP 162/77; PULSE 64; RESP 16; TEMP 36.6; O2SAT 98
== END 2023-02-25 08:48 | disposition home or self-care (01) ==
PROVIDERS: Emergency Provider Nurse Practitioner; PCP Internal Medicine
DX: J01.90 Acute sinusitis, unspecified (principal); Z87.891 Personal history of nicotine dependence; E11.9 Type 2 diabetes mellitus without complications; K21.9 Gastro-esophageal reflux disease without esophagitis; F98.8 Other specified behavioral and emotional disorders with onset usually occurring in childhood and adolescence
CPT/HCPCS: 99213; G0463

== ENCOUNTER 2023-03-06 10:22 | Emergency (ER) | payer OTHER, SELFPAY ==
--- NOTE | 2023-03-06 10:24 | ED.FEMALEGU ---
HPI - Female Genitourinary General Chief complaint: Urogenital-Female Stated complaint: UTI Time Seen by Provider: 03/06/23 10:23 Source: patient Mode of arrival: ambulatory Limitations: no limitations History of Present Illness HPI Narrative: Concepción is a 67-year-old female patient presenting to the clinic today with complaints of possible urinary tract infection. She reports symptoms started yesterday. Is having burning, frequency, and urgency with urination. Gets frequent UTIs after having intercourse. She denies any flank or abdominal pain. Denies any fever chills. Related Data Home Medications Medication Instructions Recorded Confirmed dextroamphetamine-amphetamine 20 20 mg PO DIRECTED 05/11/20 03/06/23 mg tablet estradiol 10 mcg vaginal tablet 10 mcg vaginal DIRECTED 11/08/21 03/06/23 Allergies Allergy/AdvReac Type Severity Reaction Status Date / Time benzoin Allergy Unknown Unknown Verified 03/06/23 10:39 cefuroxime Allergy Unknown Nausea Verified 03/06/23 10:39 clindamycin Allergy Unknown Nausea Verified 03/06/23 10:39 gatifloxacin Allergy Unknown SORES IN Verified 03/06/23 10:39 MOUTH levofloxacin Allergy Unknown Nausea Verified 03/06/23 10:39 meloxicam Allergy Unknown Unknown Verified 03/06/23 10:39 prednisone Allergy Unknown Other Verified 03/06/23 10:39 Review of Systems Review of Systems: Pertinent positives per HPI. Patient denies any fever, chills, rash, headache, visual changes, dizziness, cough, runny nose, sore throat, shortness of breath, chest pain, palpitations, nausea, vomiting, diarrhea, constipation, abdominal pain PMFSH Past Medical History Medical History ADD (attention deficit disorder) Esophageal reflux disease Hypothyroidism IBS (irritable bowel syndrome) Pneumonia Surgical History Surgical History H/O bladder repair surgery History of carpal tunnel release with ulnar nerve release on right History of cholecystectomy 04/05/22 History of hysterectomy History of medial meniscus repair of right knee S/P excision of lipoma from left clavicale area Family History Family History Mother Cerebrovascular accident, Onset Age: 86 Patient's mother is Father Family history of malignant neoplasm of bone, Onset Age: 72 Social History Social History Smoking status: Never smoker Second hand tobacco smoke exposure: No Smoking end date: 02/21/96 Alcohol intake: current Substance use: never Current Housing: Decline to Answer Concerned About Future Housing: Decline to Answer Difficulty Paying Gas/Electric Bills: Decline to Answer Difficulty Paying for Meds: Decline to Answer Currently Unemployed: Decline to Answer Education: Decline to Answer Difficulty w/ Childcare or Family Care: Decline to Answer Living arrangements: alone Gender identity (if verbalized by the patient): Female Comments At the time of my signature, I reviewed and agree with the nursing past medical, surgical, social, and family history. There is no relevant family history pertinent to the patient complaint. Exam Narrative: General: Well-developed, well nourished, in no apparent distress. Head: Normocephalic, atraumatic. Cardio: Regular rate and rhythm, s1 and s2 normal, no murmur appreciated. Resp: Clear to auscultation bilaterally, no rhonchi, rales, wheezing or rubs. Abdomen: Soft, pliable, bowel sounds present in all quadrants, non-tender to palpation, no organomegly, no CVAT tenderness. Course Course Emergency Course: Portions of this record may have been created with voice recognition software. Level of Care: Express Care Visit Vital Signs Vital signs: Vital signs reviewed MDM - Female Genito
[2023-03-06 10:31] VITALS: BP 150/76; PULSE 70; RESP 16; TEMP 36.4; O2SAT 100
== END 2023-03-06 10:48 | disposition home or self-care (01) ==
PROVIDERS: Emergency Provider Nurse Practitioner Family; PCP Internal Medicine
DX: N30.01 Acute cystitis with hematuria (principal); Z87.891 Personal history of nicotine dependence; K21.9 Gastro-esophageal reflux disease without esophagitis; E03.9 Hypothyroidism, unspecified; F98.8 Other specified behavioral and emotional disorders with onset usually occurring in childhood and adolescence
CPT/HCPCS: 81003; 87086; 87088; 99213; G0463

== ENCOUNTER 2023-04-16 19:44 | Emergency (ER) | payer OTHER, SELFPAY ==
--- NOTE | 2023-04-16 19:44 | ED.FEMALEGU ---
HPI - Female Genitourinary General Chief complaint: Urogenital-Female Stated complaint: urinary issue Time Seen by Provider: 04/16/23 19:44 Source: patient Mode of arrival: ambulatory Limitations: no limitations History of Present Illness HPI Narrative: Patient is a 68-year-old female who presents with burning with urination and frequency that just started today. Patient was treated for UTI 03/06 and given Bactrim. Last culture did not grow any bacteria. Denies any low back pain, fever, chills, nausea, vomiting, diarrhea. States she frequently gets UTI. Has not followed up with Urology, states she will call morning. Patient has taken azo MD elicited complaint: dysuria Related Data Home Medications Medication Instructions Recorded Confirmed dextroamphetamine-amphetamine 20 20 mg PO DIRECTED 05/11/20 04/16/23 mg tablet estradiol 10 mcg vaginal tablet 10 mcg vaginal DIRECTED 11/08/21 04/16/23 Allergies Allergy/AdvReac Type Severity Reaction Status Date / Time benzoin Allergy Unknown Unknown Verified 04/16/23 19:46 cefuroxime Allergy Unknown Nausea Verified 04/16/23 19:46 clindamycin Allergy Unknown Nausea Verified 04/16/23 19:46 gatifloxacin Allergy Unknown SORES IN Verified 04/16/23 19:46 MOUTH levofloxacin Allergy Unknown Nausea Verified 04/16/23 19:46 meloxicam Allergy Unknown Unknown Verified 04/16/23 19:46 prednisone Allergy Unknown Other Verified 04/16/23 19:46 Review of Systems Review of Systems: All systems reviewed & are unremarkable except as noted in HPI and below Constitutional: Constitutional: Denies chills, Denies fever(s), Denies headache(s), Denies malaise and Denies weakness Eyes: Eyes: Denies change in vision, Denies eye discharge and Denies irritation ENT: Denies otalgia, Denies headache(s), Denies nasal congestion, Denies nasal discharge, Denies sinus pain and Denies sore throat Cardiovascular: Cardiovascular: Denies chest pain, Denies edema, Denies palpitations and Denies dyspnea Respiratory: Respiratory: Denies cough and Denies dyspnea Gastrointestinal: Gastrointestinal: Denies abdominal pain, Denies diarrhea, Denies nausea and Denies vomiting Genitourinary: Genitourinary: Denies hematuria, Reports nocturia, Reports dysuria, Denies flank pain and Reports urinary urgency Musculoskeletal: Musculoskeletal: Denies back pain and Denies numbness Integumentary/Breasts: Skin/Breast: Denies pruritus and Denies rash Neurologic: Denies headache(s), Denies numbness and Denies weakness Psychiatric: Psychiatric: Reports no additional psychiatric complaints Endocrine: Endocrine: Denies palpitations PMFSH Past Medical History Medical History ADD (attention deficit disorder) Esophageal reflux disease Hypothyroidism IBS (irritable bowel syndrome) Pneumonia Surgical History Surgical History H/O bladder repair surgery History of carpal tunnel release with ulnar nerve release on right History of cholecystectomy 04/05/22 History of hysterectomy History of medial meniscus repair of right knee S/P excision of lipoma from left clavicale area Family History Family History Mother Cerebrovascular accident, Onset Age: 86 Patient's mother is Father Family history of malignant neoplasm of bone, Onset Age: 72 Social History Social History Smoking status: Never smoker Second hand tobacco smoke exposure: No Smoking end date: 02/21/96 Alcohol intake: current Substance use: never Current Housing: Decline to Answer Concerned About Future Housing: Decline to Answer Difficulty Paying Gas/Electric Bills: Decline to Answer Difficulty Paying for Meds: Decline to Answer Currently Unemployed: Decline to Answer Education: Decline t
[2023-04-16 19:56] VITALS: BP 147/76; PULSE 67; RESP 16; TEMP 37.2; O2SAT 99
== END 2023-04-16 20:12 | disposition home or self-care (01) ==
PROVIDERS: Emergency Provider Nurse Practitioner Family; PCP Internal Medicine
DX: N39.0 Urinary tract infection, site not specified (principal); Z87.891 Personal history of nicotine dependence; K21.9 Gastro-esophageal reflux disease without esophagitis; E03.9 Hypothyroidism, unspecified; F98.8 Other specified behavioral and emotional disorders with onset usually occurring in childhood and adolescence
CPT/HCPCS: 81003; 87086; 99213; G0463

== ENCOUNTER 2023-06-26 12:44 | Outpatient (CLI) | payer OTHER, SELFPAY ==
--- NOTE | ~2023-06-26 | CT_ITS ---
CT of the Abdomen and Pelvis: Indication: Irritable bowel syndrome Technique: 2.5 mm axial scans were obtained through the abdomen and pelvis following intravenous adm inistration of 100 cc of Omnipaque 350. Dose reduction technique was used on this scan by utilizing a utomated exposure control and iterative reconstruction technique. The dose-length product (DLP) was 5 83.99 mGy-cm. Findings: Scans through the lung bases are unremarkable. Multiple hepatic cysts are present. Cholecystectomy clips are present. The spleen, pancreas, adrenals and kidneys are within normal limits. No evidence of aortic aneurysm. No lymphadenopathy. No bowel obstruction or bowel wall thickening. There is no evidence to suggest acute appendicitis. Images through the pelvis were performed. Urinary bladder unremarkable. No pelvic mass seen. No ascit es. Impression: No acute abnormalities. Reviewed, dictated and finalized at [facility]. Impression: No acute abnormalities.
--- NOTE | ~2023-06-26 | US_ITS ---
EXAMINATION: US thyroid DATE: 06/26/2023 13:41 INDICATION: Nontoxic single thyroid nodule. TECHNIQUE: Multiple ultrasound images of the thyroid were obtained. COMPARISON: Chest on 11/09/2019, 03/22/2018, 10/02/18 FINDINGS: The right thyroid lobe measures 5.5 x 2.1 x 1.9 cm. The left thyroid lobe measures 4.4 x 1.3 x 1.5 c m. The thyroid demonstrates heterogeneous echogenicity. In the right thyroid lobe, there is a 7 mm a lmost entirely cystic nodule (TI-RADS TR1). In the in the left thyroid lobe, there is a 5 mm solid, h ypoechoic, wider than tall nodule with smooth margins and punctate echogenic focus (TR5), stable from 03/22/18, likely benign. In the left thyroid lobe, there is 11 mm solid, hypoechoic, wider than tall nodule with lobular margin without echogenic foci (TR4), stable from 03/22/2018, likely benign. In the right thyroid lobe, there is a 12 mm solid, hypoechoic, wider than tall nodule with lobular margins without echogenic foci (TR4), stable from 03/22/2018, likely benign. In the right thyroid lobe, there is 11 mm solid, hypoechoic, wider than tall nodule with lobular margin without echogenic foci (TR4), stable from 10/02/18, likely benign. IMPRESSION: 1. Chronic thyroid nodules, likely benign. No follow-up is needed. Reviewed, dictated and finalized at location A.
[2023-06-26 13:18] LABS: Estimated Glomerular Filt Rate > 60
== END 2023-06-26 12:45 ==
PROVIDERS: Visit Provider Physician Assistant
DX: E04.2 Nontoxic multinodular goiter (principal); K58.9 Irritable bowel syndrome, unspecified
CPT/HCPCS: 74177; 76536; Q9967

== ENCOUNTER 2023-11-03 15:49 | Emergency (ER) | payer OTHER, SELFPAY ==
--- NOTE | 2023-11-03 15:57 | ED.URI ---
HPI - URI/Sore Throat General Chief Complaint: Upper Respiratory Infection Stated Complaint: COVID+ Time Seen by Provider: 11/03/23 16:08 Source: patient, RN notes reviewed and old records reviewed Mode of arrival: ambulatory Limitations: no limitations History of Present Illness HPI Narrative: 68-year-old female presents to the [facility] stating that she is COVID positive in wants treatment. Patient reports that she started with a runny nose yesterday, was made to test day at work. This will be the 3rd time that she has had COVID and reports that she has taken back slough in the past Per pharmacy record did receive Paxlovid back in January of 2023 Onset (ago): day(s) (1) Related Data Home Medications Medication Instructions Recorded Confirmed dextroamphetamine-amphetamine 20 20 mg PO DIRECTED 05/11/20 06/15/23 mg tablet estradiol 10 mcg vaginal tablet 10 mcg vaginal DIRECTED 11/08/21 06/15/23 cyclobenzaprine 5 mg tablet mg 11/03/23 lidocaine 5 % topical patch patch 11/03/23 magnesium oxide 400 mg (241.3 mg mg 11/03/23 magnesium) tablet metformin 500 mg tablet,extended mg PO 11/03/23 release 24 hr sucralfate 1 gram tablet 11/03/23 Allergies Allergy/AdvReac Type Severity Reaction Status Date / Time benzoin Allergy Unknown Unknown Verified 11/03/23 16:08 cefuroxime Allergy Unknown Nausea Verified 11/03/23 16:08 clindamycin Allergy Unknown Nausea Verified 11/03/23 16:08 gatifloxacin Allergy Unknown SORES IN Verified 11/03/23 16:08 MOUTH levofloxacin Allergy Unknown Nausea Verified 11/03/23 16:08 meloxicam Allergy Unknown Unknown Verified 11/03/23 16:08 prednisone Allergy Unknown Other Verified 11/03/23 16:08 Review of Systems Review of Systems: All systems reviewed & are unremarkable except as noted in HPI and below Constitutional: Constitutional: Reports no additional constitutional complaints Eyes: Eyes: Reports no additional eye complaints ENT: Reports as per HPI, Reports headache(s) and Reports nasal discharge Cardiovascular: Cardiovascular: Reports no additional cardiovascular complaints, Denies chest pain and Denies dyspnea Respiratory: Respiratory: Reports no additional respiratory complaints, Denies chest congestion, Denies cough and Denies dyspnea Gastrointestinal: Gastrointestinal: Reports no additional gastrointestinal complaints, Denies abdominal pain, Denies nausea and Denies vomiting Musculoskeletal: Musculoskeletal: Reports no additional musculoskeletal complaints Integumentary/Breasts: Skin/Breast: Reports system reviewed and no additional complaints, except as docu Neurologic: Reports system reviewed and no additional complaints, except as documented Psychiatric: Psychiatric: Reports no additional psychiatric complaints Allergic/Immunologic: Allergic/Immunologic: Reports no additional allergic/immunologic complaints PMFSH Past Medical History Medical History ADD (attention deficit disorder) Esophageal reflux disease Hypothyroidism IBS (irritable bowel syndrome) Pneumonia Surgical History Surgical History H/O bladder repair surgery History of carpal tunnel release with ulnar nerve release on right History of cholecystectomy 04/05/22 History of hysterectomy History of medial meniscus repair of right knee S/P excision of lipoma from left clavicale area Family History Family History Mother Cerebrovascular accident, Onset Age: 86 Patient's mother is Father Family history of malignant neoplasm of bone, Onset Age: 72 Social History Social History Smoking status: Never smoker Second hand tobacco smoke exposure: No Smoking end date: 02/21/96 Alcohol intake: current Substance use: never Current Housing: [facility]
[2023-11-03 16:02] VITALS: BP 154/77; PULSE 84; RESP 20; TEMP 38.2; O2SAT 100
[2023-11-03 16:19] LABS: EDCOVIDSCREEN Positive (Negative)
== END 2023-11-03 16:33 | disposition home or self-care (01) ==
PROVIDERS: Emergency Provider Nurse Practitioner; PCP Internal Medicine
DX: U07.1 COVID-19 (principal); Z87.891 Personal history of nicotine dependence; K21.9 Gastro-esophageal reflux disease without esophagitis; E03.9 Hypothyroidism, unspecified; F98.8 Other specified behavioral and emotional disorders with onset usually occurring in childhood and adolescence
CPT/HCPCS: 87635; 99213; G0463

== ENCOUNTER 2024-04-26 17:43 | Emergency (ER) | payer OTHER, SELFPAY ==
--- NOTE | 2024-04-26 17:44 | ED.SKABFB ---
HPI - Skin/Abscess/Foreign Bdy General Chief complaint: Skin/Abscess/Foreign Body Stated complaint: lump back of head left side Time Seen by Provider: 04/26/24 17:43 Source: patient Mode of arrival: ambulatory Limitations: no limitations History of Present Illness HPI narrative: Concepción is a 69-year-old female patient presenting to the clinic today with complaints of a painful lump to the left side of her head just above her ear. States this developed yesterday and she thought it may go way however she woke up this morning and she feels as though is getting worse. The area is red, swollen, and tender. Denies any fevers, chills, body aches. Denies any known injury. History of lipoma in the past. No cyst or abscess history Related Data Home Medications ?Medication ?Instructions ?Recorded ?Confirmed ?Last Taken ?Type estradiol 10 mcg vaginal tablet 10 mcg vaginal DIRECTED 11/08/21 04/26/24 Unknown History magnesium oxide 400 mg (241.3 mg 241.3 mg PO DAILY 11/03/23 04/26/24 Unknown History magnesium) tablet metformin 500 mg tablet,extended 500 mg PO QPM 11/03/23 04/26/24 Unknown History release 24 hr Allergies Allergy/AdvReac Type Severity Reaction Status Date / Time benzoin Allergy Unknown Unknown Verified 04/26/24 18:00 cefuroxime Allergy Unknown Nausea Verified 04/26/24 18:00 clindamycin Allergy Unknown Nausea Verified 04/26/24 18:00 gatifloxacin Allergy Unknown SORES IN Verified 04/26/24 18:00 MOUTH levofloxacin Allergy Unknown Nausea Verified 04/26/24 18:00 meloxicam Allergy Unknown Unknown Verified 04/26/24 18:00 prednisone Allergy Unknown Other Verified 04/26/24 18:00 Review of Systems Review of Systems: Pertinent positives per HPI. Patient denies any fever, chills, rash, headache, visual changes, dizziness, cough, shortness of breath, chest pain, palpitations, nausea, vomiting, diarrhea, constipation, abdominal pain, or any urinary issues. [facility] Past Medical History Medical History ADD (attention deficit disorder) Esophageal reflux disease Hypothyroidism IBS (irritable bowel syndrome) Pneumonia Surgical History Surgical History History of cholecystectomy 04/05/22 History of medial meniscus repair of right knee S/P excision of lipoma from left clavicale area History of carpal tunnel release with ulnar nerve release on right H/O bladder repair surgery History of hysterectomy Family History Family History Mother Cerebrovascular accident, Onset Age: 86 Patient's mother is Father Family history of malignant neoplasm of bone, Onset Age: 72 Social History Social History Smoking status: Never smoker Second hand tobacco smoke exposure: No Smoking end date: 02/21/96 Alcohol intake: current Substance use: never Current Housing: Decline to Answer Concerned About Future Housing: Decline to Answer Difficulty Paying Gas/Electric Bills: Decline to Answer Difficulty Paying for Meds: Decline to Answer Currently Unemployed: Decline to Answer Education: Decline to Answer Difficulty w/ Childcare or Family Care: Decline to Answer Living arrangements: alone Gender identity (if verbalized by the patient): Female Comments At the time of my signature, I reviewed and agree with the nursing past medical, surgical, social, and family history. There is no relevant family history pertinent to the patient complaint. Exam Narrative: General: Well-developed, well nourished, in no apparent distress Head: Normocephalic, atraumatic, 1 x 1 cm swollen/indurated with localized redness, mild erythema, tenderness to palpation Eyes: Pupils equally round and reactive to light bilaterally, EOM intact, sclera and conjunctive clear, no discharge, lids normal Ears: TMs intact and clear, ear canals clear, no drainage, grossly hearing normal. Nose: Nares patent, no discharge, no inflammation, no sinus tenderness. Mouth: Oral pharynx without lesions or masses, good dentition, MMM. Neck: Supple, trachea midline, no enlargement of anterior or posterior cervical nodes, no thyroid masses or goiter palpable. Cardio: Regular rate and rhythm, s1 and s2 normal, no murmur appreciated. Resp: Clear to auscultation bilaterally, no rhonchi, rales, wheezing or rubs Course Course Emergency Course: Portions of this record may have been created with voice recognition software. Level of Care: Express Care Visit Vital Signs Vital signs: Vital Signs Temperature 37.0 C 04/26/24 17:56 Pulse Rate 70 04/26/24 17:56 Respiratory Rate 16 04/26/24 17:56 Blood Pressure 147/68 H 04/26/24 17:56 Pulse Oximetry 100 04/26/24 17:56 Oxygen Delivery Room Air 04/26/24 17:56 Temperature 37.0 C 04/26/24 17:56 Pulse Rate 70 04/26/24 17:56 Respiratory Rate 16 04/26/24 17:56 Blood Pressure 147/68 H 04/26/24 17:56 Pulse Oximetry 100 04/26/24 17:56 Oxygen Delivery Room Air 04/26/24 17:56 Vital signs reviewed MDM - Skin/Abscess/Foreign Bdy MDM Narrative Medical decision making narrative: At the time of visit patient is resting comfortably on the exam table. Patient appears to be nontoxic. Plan: I suspect patient has a localized infected cyst or mass without fluctuation to the left side of her head just above her ear. Will place her on Augmentin. Supportive measures were discussed with the patient and they voiced understanding discharge instructions and agrees to treatment plan. Return precautions reviewed Differential Diagnosis Differential diagnosis: Likely abscess of skin or subcutaneous tissue, viral exanthem, dermatophytosis, urticaria, herpes zoster, allergic reaction to drug, cellulitis, eczema, insect bites, impetigo, contact dermatitis and other (Lipoma, cyst) Discharge Plan Discharge Clinical Impression: Localized swelling, mass and lump, head Patient Disposition: Home, Self-Care Condition: Stable Instructions: Antibiotic Form Additional Instructions: May apply cool compress or warm compress to affected area to help alleviate pain May take Tylenol/Motrin as needed for pain Take Augmentin as prescribed Follow-up with your primary care doctor if symptoms persist in 3-5 days or go to the emergency room if symptoms worsen Patient Language: Malawian Prescriptions: New amoxicillin-pot clavulanate 875-125 mg tablet 1 tablet PO Q12H 10 Days Qty: 20 0RF No Action estradiol 10 mcg tablet 10 mcg VAGINAL DIRECTED magnesium oxide 400 mg (241.3 mg magnesium) tablet 241.3 mg PO DAILY metformin 500 mg tablet extended release 24 hr 500 mg PO QPM pantoprazole 40 mg tablet,delayed release (DR/EC) 40 mg PO QAM Qty: 90 1RF lubiprostone [Amitiza] 24 mcg capsule 24 mcg PO DAILY Qty: 90 1RF lisinopril 20 mg tablet 20 mg PO DAILY Qty: 90 1RF dicyclomine 10 mg capsule 10 mg PO BID PRN (Reason: IBS) Qty: 60 1RF Follow-up/Referrals: Primitivo Swann DO [Primary Care Provider] - Time of Disposition: 18:03 Quality NIHSS Nursing Documentation ED NIHSS nursing documentation: reviewed/agree
[2024-04-26 17:56] VITALS: BP 147/68; PULSE 70; RESP 16; TEMP 37; O2SAT 100
== END 2024-04-26 18:11 | disposition home or self-care (01) ==
PROVIDERS: Emergency Provider Nurse Practitioner Family; PCP Internal Medicine
DX: R22.0 Localized swelling, mass and lump, head (principal); K21.9 Gastro-esophageal reflux disease without esophagitis; E03.9 Hypothyroidism, unspecified
CPT/HCPCS: 99213; G0463

== ENCOUNTER 2024-06-29 07:16 | Outpatient (CLI) | payer OTHER, SELFPAY ==
--- OUTSIDE RECORDS SUMMARY | 2024-06-29 07:20 | XMS_ITS | Encounter Summary ---
Author Organization [facility] Address [address] [place] [address] Care Team Providers Care Chef De Cuisine Name Role Phone Jethro Jain DO Primary Care Provider Encounter Details Date Type Department Care Team (Late st Contact Info) Description 03/08/2022 Lab Requisition [facility] Care [facility] [address] [place] [address] Andrew Burton MD [address] [place] [address] Social History Tobacco Use Types Packs/Day Years Used Date Smoking Tobacco: Former Cigarettes 1 15 Smokeless Tobacco: Never Alcohol Use Standard Drinks/Week Comments Yes 0 (1 standard drink = 0.6 oz pur e alcohol) occ Comments No Sex and Gender Information Value Date Recorded Sex Assigned at Female 10/28/2022 11:11 AM CDT Legal Sex Female 6:16 AM RELASTER Gender Identity Female 10/28/2022 11:11 AM CDT Sexual Orientation Not on file documented as of this encounter Plan of Treatment Not on file documented as of this encounter Procedures Procedure Name Priority Date/Time Associated Diagnosis Comments DERMATOPATHOLOGY Routine 03/07/2022 12:0 0 AM RELASTER documented in this encounter Results * DERMATOPATHOLOGY (03/07/2022 12:00 AM RELASTER) Case Report Dermatopathology Report Case: [id number] Authorizing Provider: Andrew Burton MD Collected: 03/07/2022 12:00 AM Ordering Location: [facility] Lab Received: 03/08/2022 07:00 AM Pathologist: Fela Galvan MD Specimen: Skin, mid lower back 3 4:02 PM [facility] Final Diagnosis Specimen A. SKIN, mid lower back: EPIDERMOID CYST (L72.0) 3 4:02 PM [facility] Clinical History Nodule/Cyst 3 4:02 PM [facility] Gross Description Specimen A: Received is one formalin filled container labeled with the patient's name and designated mid lower back. The specimen consists of a 20x8x8 mm piece of skin. The specimen is serially sectioned and a ambulatory services representative section is submitted in cassette 1. Jar 1. 3 4:02 PM [facility] Microscopic Description Specimen A. SKIN, mid lower back: Within the dermis, there is a space lined by epithelium that resembles normal epidermis and the infundibular portion of the hair follicle. 3 4:02 PM [facility] DERMATOPATHOLOGY [facility]ORATORY Disclaimer An external and internal positive and negative controls are appropriate for the histochemical, immunohistochemical and immunofluorescence stain(s) in this case (if any), except where stated explicitly. The performance characteristics of the stain(s) cited in this report were developed and its performance characteristic determined by the Dermatopathology Laboratory at [facility], directed by Dr. Kg Bacon. These tests need not be, and therefore are not, approved by the [place] Food and Drug Administration. The tests are used for clinical purposes. Billing Codes Specimen Charges Stain Charges 38393 1 3 4:02 PM [facility] DERMATOPATHOLOGY LABORATORY Embedded Images 3 4:02 PM [facility] DERMATOPATHOLOGY [facility]ORATORY Pathology/Cytolog y TISSUE SPECIMEN FROM SKIN / Unknown 03/07/2022 03/08/2022 7:00 AM RELASTER Andrew Burton MD LAB - PATHOLOGY/CYTOLOGY ORDERAB LES Final Result DERMATOPATHOLOGY LABORATORY [facility] - Department of Dermatology [facility] Special[facility] Medicine [address] [place] [address], [address] [phone] documented in this encounter Visit Diagnoses Not on filedocumented in this encounter Care Teams Chef De Cuisine Relationship Specialty Start Date End Date Jethro Jain DO [address] [facility] [address] [place], [place] [id number] PCP - General 07/31/18 documented as of this encounter
--- OUTSIDE RECORDS SUMMARY | 2024-06-29 07:21 | XMS_ITS ---
Author Organization [facility] Address [address] [place], [place] [id number] Care Team Providers Care Metal Building Assembler Name Role Phone PHILLIP MARIAH Unavailable [phone] Aneudy Bolanos Unavailable Unavailable REASON FOR VISIT *Orthotic pick-up Medications Medication SIG (Take, Route, Frequency, Duration) Notes Start Date End Date Status diclofenac sodium 0.01 MG/MG Topical Gel [Voltaren] CUTANEOUS diclofenac sodium 0.01 MG/MG Topical Gel [Voltaren]Original Medicationdiclofenac sodium 0.01 MG/MG Topical Gel [Voltaren] *Reorder from [email or web address] for eRx and Interaction Alerts* 4 Unknown amphetamine aspartate 2.5 MG / amphetamine sulfate 2.5 MG / dextroamphetamine saccharate 2.5 MG / dextroamphetamine sulfate 2.5 MG Oral Tablet [Adderall] ORAL amphetamine aspartate 2.5 MG / amphetamine sulfate 2.5 MG / dextroamphetamine saccharate 2.5 MG / dextroamphetamine sulfate 2.5 MG Oral Tablet [Adderall]Original Medicationamphetamine aspartate 2.5 MG / ampheta 7 Unknown Encounters Encounter Location Date Provider Diagnosis [facility] [address] [place], [place] [id number] 01/15/2024 MARIAH SU Plantar fasciitis M72.2 ; Other acquired deformities of right foot M21.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 It was noted that the orthotic conformed well to the patients foot in the subtalar joint neutral position. 01/15/2024 Other acquired deformities of right foot (ICD-10 - M21.6X1) 01/15/2024 Pain in right foot (ICD-10 - M79.671) Plan Of Treatment Treatment Notes Assessment Notes Plantar fasciitis Orthotic dispense: T he orthotic devices were dispensed and fitted. It was noted that the orthotic conformed well to the patients foot in the subtalar joint neutral position. Progress Notes * CARLOS MORIN ADOB:[birth year] (69 yo F)Acc No.[id number]:01/15/2024 Patient: CARLOS SPEAR Provider: Abdelrahman Su DPM :1955 A ge:68 Y S ex:Female Date:01/15/2024 Address:[address] [place] [address] Subjective: * Chief Complaints: * * Orthotic pick-up * Medical History: * Surgical History: * Hospitalization/Major Diagno stic Procedure: * Medications: U nknownamphetamine aspartate 2.5 MG / amphetamine sulfate 2.5 MG / dextroamphetamine saccharate 2.5 MG / dextroamphetamine sulfate 2.5 MG Oral Tablet [Adderall] ORAL , Notes to Pharmacist: amphetamine aspartate 2.5 MG / amphetamine sulfate 2.5 MG / dextroamphetamine saccharate 2.5 MG / dextroamphetamine sulfate 2.5 MG Oral Tablet [Adderall]Original Medicationamphetamine aspartate 2.5 MG / amphetadiclofenac sodium 0.01 MG/MG Topical Gel [Voltaren] CUTANEOUS , Notes to Pharmacist: diclofenac sodium 0.01 MG/MG Topical Gel [Voltaren]Original Medicationdiclofenac sodium 0.01 MG/MG Topical Gel [Voltaren] *Reorder from [facility] for eRx and Interaction Alerts*Medication List reviewed and reconciled with the patientUnknown amphetamine aspartate 2.5 MG / amphetamine sulfate 2.5 MG / dextroamphetamine saccharate 2.5 MG / dextroamphetamine sulfate 2.5 MG Oral Tablet [Adderall] ORAL , Notes to Pharmacist: amphetamine aspartate 2.5 MG / amphetamine sulfate 2.5 MG / dextroamphetamine saccharate 2.5 MG / dextroamphetamine sulfate 2.5 MG Oral Tablet [Adderall]Original Medicationamphetamine aspartate 2.5 MG / amphetaUnknown diclofenac sodium 0.01 MG/MG Topical Gel [Voltaren] CUTANEOUS , Notes to Pharmacist: diclofenac sodium 0.01 MG/MG Topical Gel [Voltaren]Original Medicationdiclofenac sodium 0.01 MG/MG Topical Gel [Voltaren] *Reorder from [email or web address] for eRx and Interaction Alerts*Medication List reviewed and reconciled with the patient Objective: * Vitals: * Examination: C onstitutional: Constitutional T he patient is awake, alert, well developed, well groomed and well nourished. . D ermatologic: Skin findings: S kin is warm, dry, supple with no breaks in the skin. . Nail pathology: N ails 1-5 bilateral are normal in appearance and thickness. No discoloration. . Ulcer: T here is no evidence of ulceration noted at this time . Hyperkeratotic Skin Lesion T here is no evidence of hyperkeratosis . M usculoskeletal: Muscle Strength M uscle strength is 5/5 in regards to dorsiflexion, plantarflexion, inversion, and eversion in bilateral lower extremities. . Foot Structure T he foot structure is noted to be cavus bilaterally . Pain on palpation T here is no pain on palpation . Plantar Fascia T here is pain on palpation to the central portion of the medial band . Gait T here is normal gait noted . N eurologic: Muscle power: 5 /5 bilaterally . Gross sensation G ross sensation is intact to light touch. . V ascular: Dorsalis pedis pulse: 2 /4 bilateral . Posterior tibial pulse: 2 /4 bilaterally . Capillary refill: l ess than 3 seconds bilaterally . Temperature gradient: w ithin normal limits . ? Assessment: * Assessment: 1. P lantar fasciitis - M72.2 (Primary) 2 . O ther acquired deformities of right foot - M21.6X1 3 . P ain in right foot - M79.671 Plan: * Treatment: * Procedure Codes: * Billing Information: * Visit Code: 64402 Office Visit, Est Pt., Level 3. * Procedure Codes: * Sign off status: Completed true * Provider: Abdelrahman Su DPM Date: 03/16/2023 Generated for Sulema crowley/Liz/Conner on: 0 06/29/2024 07:20 AM CDT History and Physical Notes * Examination Category Sub-Category Detail Notes Category Not es Constitutional Constitutional The patient is a wake, alert, well developed, well groomed and well nourished. Dermatologic Skin findings: Skin is warm, dr y, supple with no breaks in the skin. Nail pathology: Nails 1-5 bilateral are normal in appearance and thickness. No discoloration. Ulcer: There is no evidence of ulceration noted at this time Hyperkeratotic Skin Lesion There is no e vidence of hyperkeratosis Musculoskeletal Muscle Strength Muscle strength is 5/5 in regards to dorsiflexion, plantarflexion, inversion, and eversion in bilateral lower extremities. Pain on palpation There is no pain on palpation Plantar Fascia There is pain on pal pation to the central portion of the medial band Foot Structure The foot structure i s noted to be cavus bilaterally Gait There is normal gait noted Neurologic Muscle power: 5/5 bilaterally Gross sensation Gross sensation is i ntact to light touch. Vascular Dorsalis pedis pulse: 2/4 bilateral Posterior tibial pulse: 2/4 bilaterally Capillary refill: less than 3 seconds bilaterally Temperature gradient: within normal limi ts
--- OUTSIDE RECORDS SUMMARY | 2024-06-29 07:21 | XMS_ITS ---
Author Organization [facility] Address [address] [place], [place] [id number] Care Team Providers Care Turntable Operator Name Role Phone MARIAH SU Unavailable [phone] Aneudy Bolanos Unavailable Unavailable Allergies Allergen (clinical drug ingredient) Drug/Non Drug Allergy documented on EMR Reaction Allergy Type Onset Date Status gatifloxacin Tequin (uncoded) Unknown Allergy 03/29/2012 active Benzoin Unknown Drug Allergy 03/29/2012 active Ceftin Unknown Drug Allergy 03/29/2012 active clindamycin Cleocin Unknown Drug Allergy 03/29/2012 acti ve REASON FOR VISIT *Foot Pain Medications Medication SIG (Take, Route, Frequency, Duration) Notes Start Date End Date Status amphetamine aspartate 2.5 MG / amphetamine sulfate 2.5 MG / dextroamphetamine saccharate 2.5 MG / dextroamphetamine sulfate 2.5 MG Oral Tablet [Adderall] ORAL amphetamine aspartate 2.5 MG / amphetamine sulfate 2.5 MG / dextroamphetamine saccharate 2.5 MG / dextroamphetamine sulfate 2.5 MG Oral Tablet [Adderall]Original Medicationamphetamine aspartate 2.5 MG / ampheta 7 Active diclofenac sodium 0.01 MG/MG Topical Gel [Voltaren] CUTANEOUS diclofenac sodium 0.01 MG/MG Topical Gel [Voltaren]Original Medicationdiclofenac sodium 0.01 MG/MG Topical Gel [Voltaren] *Reorder from [employer] for eRx and Interaction Alerts* 4 Active Vital Signs Height 68.00 in 12/25/2023 Weight 153 lbs 12/25/2023 BMI 23.26 kg/m2 12/25/2023 Height-cm 172.72 cm 12/25/2023 Weight-kg 69.4 kg 12/25/2023 Encounters Encounter Location Date Provider Diagnosis [facility] [address] [place], [place] [id number] 12/25/2023 MARIAH SU Plantar fasciitis M72.2 ; Other acquired deformities of right foot M21.6X1 and Pain in right foot M79.671 Assessments Encounter Date Diagnosis (ICD Code) Assessment Notes Treatment Notes Treatment Clinical Notes Section Notes 12/25/2023 Plantar fasciitis (ICD-10 - M72.2) 12/25/2023 Other acquired deformities of right foot (ICD-10 - M21.6X1) 12/25/2023 Pain in right foot (ICD-10 - M79.671) 12/25/2023 Other Orthotic casting: The patient was casted for functional orthotic devices. This was done in the subtalar joint neutral position in a non-weightbeari ng fashion. The patient will follow-up in 3 weeks time to be dispensed and fitted with the devices. Wear night splint that she already has. Ice: Apply ice to the painful area for 10 - 15 minutes as needed Plan Of Treatment Treatment Notes Assessment Notes Other Orthotic casting: The patient was casted for functional orthotic devices. This was done in the subtalar joint neutral position in a non-weightbearing fashion. The patient will follow-up in 3 weeks time to be dispensed and fitted with the devices. Wear night splint that she already has. Ice: Apply ice to the painful area for 10 - 15 minutes as needed Progress Notes * CARLOS MORIN ADOB:[birth year] (69 yo F)Acc No.[id number]:12/25/2023 Progress Notes Patient: Fang GARZAMICHELLE DIMASCARLOS A Provider: Abdelrahman Su DPM :1955 A ge:68 Y S ex:Female Date:12/25/2023 Address:[address] [place], [place] [id number] Subjective: * Chief Complaints: * * Foot Pain * HPI: H PI: New Complaint E stablished patient presents with a new complaint., Patient complains of an issue to right foot. Patient states she has a high arch but it is really painful at this point. Also causing calf and leg to become sore. Had a previous tear in the same foot. , Duration of problem is about a month. , Patient denies any injury., MA: salome. * Medical History: * Surgical History: * Hospitalization/Major Diagno stic Procedure: * Family History: F ather: PRN - Father: :: Cancer,,known absent . M other: PRN - Mother: :: Arthritis,,known absent , :: Stroke,,known absent , :: Cancer,,known absent . S ister: SIB - Sister: . * Social History: M igrated Social History: M igrated Social History: Smoking Status : Former smoker , History of tobacco use : , Alcohol intake :. * Medications: T akingamphetamine aspartate 2.5 MG / amphetamine sulfate 2.5 [...] 0.01 MG/MG Topical Gel [Voltaren] *[facility]*Medication List reviewed and reconciled with the patientTaking amphetamine aspartate 2.5 MG / amphetamine sulfate 2.5 MG / dextroamphetamine saccharate 2.5 MG / dextroamphetamine sulfate 2.5 MG Oral Tablet [Adderall] ORAL , Notes to Pharmacist: amphetamine aspartate 2.5 MG / amphetamine sulfate 2.5 MG / dextroamphetamine saccharate 2.5 MG / dextroamphetamine sulfate 2.5 MG Oral Tablet [Adderall]Original Medicationamphetamine aspartate 2.5 MG / amphetaTaking diclofenac sodium 0.01 MG/MG Topical Gel [Voltaren] CUTANEOUS , Notes to Pharmacist: diclofenac sodium 0.01 MG/MG Topical Gel [Voltaren]Original Medicationdiclofenac sodium 0.01 MG/MG Topical Gel [Voltaren] *[facility] and Interaction [facility]s*Medication List reviewed and reconciled with the patient * Allergies: T equin: Allergy - Onset Date 03/29/2012enzoin: Allergy - Onset Date 03/29/2012Ceftin: Allergy - Onset Date 03/29/2012Cleocin: Allergy - Onset Date 03/29/2012 Objective: * Vitals: S hoe Size: 8.5, Wt:153lbs, Wt-k.4 kg, Ht: 68.00 in, Ht-cm: 172.72 cm, BMI:23.26Index, Body Surface Area: 1.82. * Examination: C onstitutional: Constitutional T he [...] foot - M79.671 Plan: * Treatment: * Immunizations: Immunization record has been reviewed and updated. * Procedure Codes: L 3020 FT INSRT REMV MOLD LNGTUDNL SUPP EA, Modifiers: RT , [id number] FT INSRT REMV MOLD LNGTUDNL SUPP EA, Modifiers: LT , GA * Billing Information: * Visit Code: 07333 Office Visit, New Pt., Level 3. * Procedure Codes: L3020 FT INSRT REMV MOLD LNGTUDNL SUPP EA. Modifiers: RT, GA L3020 FT INSRT REMV MOLD LNGTUDNL SUPP EA. Modifiers: LT, GA * Sign off status: Completed true * Provider: Abdelrahman Su DPM Date: 02/23/2023 Generated for Sulema crowley/Liz/Conner on: 0 06/29/2024 07:21 AM CDT History and Physical Notes * HPI (History of Present Illness) Category Sub-Category Detail Notes Category Not es HPI New Complaint Established gulshan ent presents with a new complaint., Patient complains of an issue to right foot. Patient states she has a high arch but it is really painful at this point. Also causing calf and leg to become sore. Had a previous tear in the same foot. , Duration of problem is about a month. , Patient denies any injury., MA: beg Examination Category Sub-Category Detail Notes Category Not [...]
--- OUTSIDE RECORDS SUMMARY | 2024-06-29 07:21 | XMS_ITS | Clinical Summary ---
Author Organization [facility] Address [facility] [place] [address] Care Team Providers Care Switchboard Operator Name Role Phone Darvin Meneses DO Unavailable [phone] Aneudy Bolanos MD Primary Care Provider [phone] Allergies Active Allergy Reactions Criticality Noted Date Comments Benzoin Rash Low 09/02/2021 Cefuroxime GI Upset 09/02/2021 Clindamycin GI Upset 09/02/2021 Levofloxacin GI Upset 09/02/2021 Meloxicam Rash,Itching Low 09/02/2021 Gatifloxacin Other (see comment) 09/02/2021 Sores in the mouth Medications ALPRAZolam (XANAX) 0.25 MG tablet Take 1 tablet (0.25 mg total) by mouth daily as needed for Anxiety. FOR ANXIETY 3 Active amphetamine-dex troamphetamine (ADDERALL) 20 MG tablet Take 1 tablet (20 mg total) by mouth 2 (two) times daily. 3 Active cyclobenzaprine (FLEXERIL) 10 MG tablet Take 1 tablet (10 mg total) by mouth nightly as needed for Muscle Spasms. 3 Active Estradiol [address] 1 tablet vaginally twice a week. 3 Active lisinopril (PRINIVIL) 20 MG tablet Take 1 tablet (20 mg total) by mouth daily. 3 Active Prucalopride Succinate 2 MG Tab Take 2 mg by mouth daily. 3 Active dicyclomine (BENTYL) 10 MG capsule Take 1 capsule (10 mg total) by mouth 4 (four) times daily before meals and nightly. Active omeprazole (PRILOSEC) 20 MG capsule Take 1 capsule (20 mg total) by mouth daily. Active HYDROcodone-nery taminophen (NORCO) 5-325 MG tabletIndicatio ns:Acute Pain < 3 Day Supply Take 1 tablet by mouth every 6 (six) hours as needed for Pain. Indications: Acute Pain < 3 Day Supply 10 tablet 4 Active traMADol (ULTRAM) 50 MG tabletIndicatio ns:Acute Pain < 3 Day Supply Take 1 tablet (50 mg total) by mouth every 6 (six) hours as needed. Indications: Acute Pain < 3 Day Supply 10 tablet 4 Active sucralfate (CARAFATE) 1 G tablet Take 1 tablet (1 g total) by mouth 4 (four) times daily before meals and nightly. 360 tablet 4 Active Social History Tobacco Use Types Packs/Day Years Used Date Smoking Tobacco: Never Smokeless Tobacco: Never Tobacco Cessation:Counseling Given: Not Answered Alcohol Use Standard Drinks/Week Comments Yes 0 (1 standard drink = 0.6 oz pur e alcohol) rarely Comments No Sex and Gender Information Value Date Recorded Sex Assigned at Not on file Legal Sex Female 10:25 PM CDT Gender Identity Not on file Sexual Orientation Not on file Last Filed Vital Signs Vital Sign Reading Time Taken Comments Blood Pressure 124/68 10/12/2023 3:30 PM CDT Pulse 51 10/12/2023 3:30 PM CDT Temperature 36.7 C (98 F) 10/12/2023 12:44 PM CDT Respiratory Rate 12 10/12/2023 3:30 PM CDT Oxygen Saturation 97% 10/12/2023 3:30 PM CDT Inhaled Oxygen Concentration - - Weight 71.3 kg (157 lb 3 oz) 10/12/2023 12:44 PM CDT Height 170.2 cm (5' 7 ) 10/12/2023 12:44 PM CDT Body Mass Index 24.62 10/12/2023 12:44 PM CDT Plan of Treatment Health Maintenance Due Date Last Done Comments Colorectal Cancer Screening Colonoscopy (10 Years) 1955 Hepatitis C 1974 DTaP, Tdap and Td Vaccines (1 - Tdap) 1975 Pneumococcal Vaccine: 50+ Years (1 of 1 - PCV) 2006 COVID-19 Vaccine ( - season) 2023 09/15/2021, 09/15/2021, 02/17/2021, Additional history exists Mammogram Screening 05/25/2025 05/26/2023, 05/05/2022, 04/05/2021, Additional history exists RSV Immunization or 60+ Years (1 - 1-dose 75+ series) 2031 Zoster Vaccines Completed 04/18/2019, 01/31/2019 Dexa Scan (General) Completed 08/02/2023, 05/05/2022, 05/05/2022, Additional history exists Meningococcal B Vaccine Aged Out No l onger eligible based on patient's age to complete this topic Meningococcal Vaccine Aged Out No gem wili eligible based on patient's age to complete this topic RSV Immunizations Under 20 Months Aged Out No longer eligible based on patient's age to complete this topic Insurance MEDICARE PART A Care Teams Switchboard Operator Relationship Specialty Start Date End Date Aneudy Bolanos MD [address] [place] [address] PCP - General INTERNAL MEDICINE 10/12/23 Darvin Meneses DO [address] [address] Resident FAMILY PRACTICE 02/10/23
--- OUTSIDE RECORDS SUMMARY | 2024-06-29 07:21 | XMS_ITS | Clinical Summary ---
Author Organization [facility] Address [address] [place] [address] Phone [email or web address] Care Team Providers Care Button Spindler Name Role Phone Jethro Jain MD Primary Care Provider Unavai lable Allergies Active Allergy Reactions Criticality Noted Date Comments Adhesive Rash Medium 08/03/2021 Benzoin Rash Medium 08/03/2021 Cefuroxime GI intolerance Low 02/18/2021 stomach pain Clindamycin Hives,Rash,GI intolerance,Other (see comments) Medium 03/18/2016 stomach pain Clindamycin Palmitate Hcl 08/03/2021 Codeine Nausea Only Low 08/03/2021 Gatifloxacin GI intolerance Low 08/03/2021 Sores in the mouth Lactose Nausea And Vomiting Low 11/07/2022 Levofloxacin Nausea And Vomiting,Other (see comments),GI intolerance Low 09/29/2017 Mouth sore stomach pain Mouth sore Mouth sore Meloxicam Itching,Rash Medium 09/17/2018 Mirabegron Itching Low 09/14/2022 Morphine Nausea Only Low 08/03/2021 Other Rash Medium 02/18/2021 Propoxyphene Unknown 08/03/2021 Tilactase Diarrhea,GI intolerance Low 08/19/2019 Medications amphetamine-dextr oamphetamine (ADDERALL) 20 MG tablet Take 1 tablet by mouth in the morning and 1 tablet before bedtime. Active mometasone (ELOCON) 0.1 % lotion APPLY 2 DROPS TOPICALLY TO AFFECTED EAR AT BEDTIME 1 Active ALPRAZolam (XANAX) 0.25 MG tablet Take 0.25 mg by mouth. 2 Active calcium carbonate 1500 (600 Ca) MG tablet Take 600 mg by mouth once daily as needed. Active estradiol (ESTRACE) 0.1 MG/GM vaginal cream Insert 1 gram into vagina q HS X 10 nights then twice/week 3 Active solifenacin (VESICARE) 5 MG tablet Take 5 mg by mouth once daily as needed. Active polyethylene glycol (GLYCOLAX) 17 g packet Take by mouth once daily as needed. Active amphetamine-dextr oamphetamine (ADDERALL) 20 MG tablet Take 20 mg by mouth in the morning and 20 mg in the evening. 3 Active lisinopril (ZESTRIL) 20 MG tabletIndications :Primary hypertension Take 1 tablet (20 mg total) by mouth 1 (one) time each day. 90 tablet 4 Active Active Problems Problem Noted Date Diagnosed Date Medication management 03/15/2023 Assessment & Plan (03/15/2023 2:43 PM WIRE TURNING MACHINE OPERATOR): Wear sunscreen while outdoors. Wear seatbelts while in a vehicle. Do not text and drive. Follow a heart healthy diet and lifestyle. Consume 5-7 servings of fruits and vegetables a day. Maintain/attain normal body weight. Maintain good sleep schedule and sleep habits. Primary hypertension 03/15/2023 Assessment & Plan (03/15/2023 2:43 PM WIRE TURNING MACHINE OPERATOR): Pt has h/o HTN and will need to keep their BP at goal for their specific risk category, typically the BP should be below 140/90. HTN increases risks for heart attack and stroke as well as renal impairment. Uncontrolled HTN may cause vision changes and headache. You will need to work on daily exercise Minimum of 150 minutes per week over at least 3 days and dieting to lose weight if above a BMI of 25. Diet should be rich in vegetables, fruits and whole grains. Recommend DASH or Mediterranean diet low fat dairy, poultry, fish, legumes, nuts and non-tropical vegetable oils, limit sugar sweetened beverages and red meat. You will also need to reduce salt, increase dietary potassium and take any prescribed medications as ordered. Gastroesophageal reflux disease without esophagi tis 03/15/2023 Assessment & Plan (03/15/2023 2:44 PM WIRE TURNING MACHINE OPERATOR): Take your medicines exactly as prescribed. Call your doctor if you think you are having a problem with your medicine. Your doctor may recommend mpab-bry-yotudxd medicine. For mild or occasional indigestion, antacids, such as Tums, Gaviscon, Mylanta, or Maalox, may help. Your doctor also may recommend qemr-qun-czulwdf acid reducers, such as famotidine (Pepcid AC), cimetidine (Tagamet HB), or omeprazole (Prilosec). Read and follow all instructions on the label. If you use these medicines often, talk with your doctor. Change your eating habits. It's best to eat several small meals instead of two or three large meals. After you eat, wait 2 to 3 hours before you lie down. Avoid foods that make your symptoms worse. These may include chocolate, mint, alcohol, pepper, spicy foods, high-fat foods, or drinks with caffeine in them, such as tea, coffee, rebecca, or energy drinks. If your symptoms are worse after you eat a certain food, you may want to stop eating it to see if your symptoms get better. Do not smoke or chew tobacco. Smoking can make GERD worse. If you need help quitting, talk to your doctor about stop-smoking programs and medicines. These can increase your chances of quitting for good. If you have GERD symptoms at night, raise the head of your bed 6 to 8 inches by putting the frame on blocks or placing a foam wedge under the head of your mattress. (Adding extra pillows does not work.) Do not wear tight clothing around your middle. Lose weight if you need to. Losing just 5 to 10 pounds can help. Wellness examination 03/15/2023 Assessment & Plan (03/15/2023 3:51 PM WIRE TURNING MACHINE OPERATOR): Healthy Behavior Recommendations: Evidence suggests an active lifestyle and achieving and maintaining an ideal body weight (20-25 BMI) is optimal for health. Experts recommend at least 30 minutes of moderate to vigorous activity per day as tolerated, 5 days a week. Eat healthy, including plenty of fresh fruits and vegetables daily. Strive to have 2/3 cup of your plate to be vegetables, fruits, whole grains and beans, while 1/3 or less should be an animal product. Choose fish and chicken and limit red meat and processed meats. Limit alcohol intake to tone drink or less per day for a woman. Avoid smoking! Practice sun safety: Use a water resistant sunscreen with SPF of at least 30 to protect against UVA and UVB rays to protect against skin cancer. Apply sunscreen every two hours or after swimming or excessive sweating. Consider using physical barriers whenever possible (ex. Hats, shirts with sleeves, avoid direct sun during peak hours). Keep up-to-date on general health screening tests, including cholesterol, blood pressure and glucose (blood sugar) levels. Get an annual influenza vaccine (flu shot). Get vaccinated with the pneumococcal vaccine if > 64 yrs old, which prevents a type of pneumonia, and re-vaccinated as determined by your primary healthcare team. Get vaccinated with the shingles vaccine if > 50 yrs old COVID19 vaccine recommended. Keep up-to-date on dental and eye exams. Esophageal hiatus hernia 11/08/2022 History of gastric ulcer 11/02/2022 Chronic idiopathic constipation 08/17/2022 Overview (03/15/2023): Last Assessment & Plan: Will give her trial of Motegrity 2 mg daily. This might help greatly with her feeling of bloating and abdominal distension in addition to her constipation problem. She has been on Amitiza and has variable bowel movements. In general this works well but she does have occasional diarrhea and occasional episodes in which is less effective. Last Assessment & Plan: Will give her trial of Motegrity 2 mg daily. This might help greatly with her feeling of bloating and abdominal distension in addition to her constipation problem. She has been on Amitiza and has variable bowel movements. In general this works well but she does have occasional diarrhea and occasional episodes in which is less effective. Osteoporosis 05/16/2022 Overview (03/15/2023): 2019 - pt's BDM worse--counseled. Spine T score of -1.5. left femoral neck T score of -2.1. 2022-BMD is worse. Spine T-score of-2.4, total hip T-score -2.6 Patient referred to bone specialist Urethral sphincter deficiency, intrinsic (ISD) 0 03/17/2022 Overview (03/15/2023): Added automatically from request for surgery [id number] Added automatically from request for surgery [id number] Chronic pansinusitis 05/25/2021 Small intestinal bacterial overgrowth 11/14/2019 Overview (08/03/2021): Last Assessment & Plan: Patient responded well to Xifaxan. If she has a flare-up I would use this again for the 2 week course. Follow-up with me 1 year GERD without esophagitis 08/19/2019 Overview (03/15/2023): Last Assessment & Plan: May be having some recurrence of reflux symptoms. Recommend intra reflux measures. Add back the omeprazole 20 mg daily and then may try to wean off again and could potentially do this with addition of Pepcid. She will be seen ENT shortly and they could potentially do direct laryngoscopy if needed. Last Assessment & Plan: Improved. Continue omeprazole for now and can wean down to famotidine in the future. Last Assessment & Plan: Improved. Continue omeprazole for now and can wean down to famotidine in the future. Last Assessment & Plan: May be having some recurrence of reflux symptoms. Recommend intra reflux measures. Add back the omeprazole 20 mg daily and then may try to wean off again and could potentially do this with addition of Pepcid. She will be seen ENT shortly and they could potentially do direct laryngoscopy if needed. Assessment & Plan (03/15/2023 2:41 PM WIRE TURNING MACHINE OPERATOR): Take your medicines exactly as prescribed. Call your doctor if you think you are having a problem with your medicine. Your doctor may recommend mgno-ikq-onxvlrh medicine. For mild or occasional indigestion, antacids, such as Tums, Gaviscon, Mylanta, or Maalox, may help. Your doctor also may recommend uepa-ypg-qavecgs acid reducers, such as famotidine (Pepcid AC), cimetidine (Tagamet HB), or omeprazole (Prilosec). Read and follow all instructions on the label. If you use these medicines often, talk with your doctor. Change your eating habits. It's best to eat several small meals instead of two or three large meals. After you eat, wait 2 to 3 hours before you lie down. Avoid foods that make your symptoms worse. These may include chocolate, mint, alcohol, pepper, spicy foods, high-fat foods, or drinks with caffeine in them, such as tea, coffee, rebecca, or energy drinks. If your symptoms are worse after you eat a certain food, you may want to stop eating it to see if your symptoms get better. Do not smoke or chew tobacco. Smoking can make GERD worse. If you need help quitting, talk to your doctor about stop-smoking programs and medicines. These can increase your chances of quitting for good. If you have GERD symptoms at night, raise the head of your bed 6 to 8 inches by putting the frame on blocks or placing a foam wedge under the head of your mattress. (Adding extra pillows does not work.) Do not wear tight clothing around your middle. Lose weight if you need to. Losing just 5 to 10 pounds can help. PFD (pelvic floor dysfunction) 09/17/2018 Urge incontinence of urine 09/17/2018 Overview (08/03/2021): 2019 - not having much bladder trouble but told to see UroGyn if needed Irritable bowel syndrome wit h both constipation and diarrhea 09/29/2017 Overview (03/15/2023): Last Assessment & Plan: Continue Amitiza b.i.d.. Follow-up with nurse practitioner and Matthewer 1 year. Last Assessment & Plan: The patient has previous history of SIBO. This may be playing a role and will place her on Xifaxan. She has more of a constipation predominance with only rare episodes of loose stools. Her stools are thin when expel with a large stool burden on x- ray. I recommend resuming the Motegrity in addition to the Amitiza. Consider another bowel washout with MiraLax. Will discuss after course of Xifaxan and addition of Motegrity. Also consider anal manometry testing regarding the constipation issues. Lipoma of left shoulder 09/26/2016 Osteopenia 04/05/2016 Overview (08/03/2021): 2020 - pt's BDM worse last summer, counseled. Spine T score of -1.5. BMD left femoral neck T score of -2.1. Plan exercise. Plan repeat BMD 2021 Last Assessment & Plan: 2020 - pt's BDM worse last summer, counseled. Spine T score of -1.5. BMD left femoral neck T score of -2.1. Plan exercise. Plan repeat BMD 2021 Seasonal allergic rhinitis 10/09/2015 Overview (08/03/2021): Seasonal nasal allergies Resolved Problems Problem Noted Date Diagnosed Date Resolved Date Biliary dyskinesia 03/15/2023 Cholecystitis 08/17/2022 03/15/2023 Anal sphincter incontinence 01/07/2022 03/15/2023 Overview (03/15/2023): Referred to Drs. Soni. Declines PT Last Assessment & Plan: Referred to Drs. Soni. Declines PT Chronic eczematous otitis ex terna of both ears 05/25/2021 03/15/2023 Encounter for immunization 12/03/2019 0 08/03/2021 Overview (12/01/2020): Atrophic vaginitis 05/18/2018 Overview (03/15/2023): pt wants to avoid anything hormonal... 07/2018 - vaginal pH is off...trial boric acid and encouraged to use olive oil daily.... 08/2018 - Seen by [facility] - rec: strict vulvar guidelines, vaginal prebiotics, PT for pelvic floor Last Assessment & Plan: pt wants to avoid anything hormonal... 07/2018 - vaginal pH is off...trial boric acid and encouraged to use olive oil daily.... 08/2018 - Seen by [facility] - rec: strict vulvar guidelines, vaginal prebiotics, PT for pelvic floor 2019 - Seen by [facility] - rec: strict vulvar guidelines, vaginal prebiotics, PT for pelvic floor 12/2021 trial vesicare; 2022 Vagifem 09/2022 trial Estrace vaginal cream, con't Crisco and lubricant with intercourse Last Assessment & Plan: Discussed increasing vaginal estrogen to Estrace vaginal cream and stopping Vagifem. Pt hesitant due to scared of cancer. Discussed slight increased risk of breast CA with any estrogen use but advised very small risk and need to weigh quality of life vs. Potential risks. Pt has been told by urologist needs estrogen cream as well. Agreeable with trial of Estrace cream. Counseled on use, benefits. Rx sent in. pt wants to avoid anything hormonal... 07/2018 - vaginal pH is off...trial boric acid and encouraged to use olive oil daily.... 08/2018 - Seen by [facility] - rec: strict vulvar guidelines, vaginal prebiotics, PT for pelvic floor Last Assessment & Plan: pt wants to avoid anything hormonal... 07/2018 - vaginal pH is off...trial boric acid and encouraged to use olive oil daily.... 08/2018 - Seen by [facility] - rec: strict vulvar guidelines, vaginal prebiotics, PT for pelvic floor 2019 - Seen by [facility] - rec: strict vulvar guidelines, vaginal prebiotics, PT for pelvic floor 12/2021 trial vesicare Last Assessment & Plan: Will continue vagifem. Reocmmended she use crisco 3x/week and with intercourse to vagina. Patient verbalizes understanding. Pt has h/o of bladder surgery and with leakage again. Wearing liner - discussed using vaseline to vulva. Pt desires another opinion form urolgy. Pt referred to [facility]. Unspecified chronic otitis externa, bilateral 12/21/19 13 03/15/2023 Overview (08/03/2021): Chronic otitis externa Immunizations Immunization Administration Dates Next Due Covid-19 (Moderna Putnam, 12yrs+) (CVX-207) 2020,04/13/2020,03/06/2020 Covid-19 (Moderna Putnam, 6 mo to 5 yrs) (CVX-228) 09/15/2021 Influenza (Flucelvax) MDCK, PF, quad (CVX-171) 12/03/2019,12/03/2018 Influenza single-dose SYRING E (Fluad)(65yrs+) trivalent, adjuvanted (CVX-168) 11/28/2023 Influenza, (Fluad) quad, adj uvanted (CVX-205) 12/08/2022,11/30/2021 Zoster (Shingrix) (TWO VIALS -MUST MIX) recombinant (CVX-187) 04/18/2019,01/31/2019 Family History Medical History Relation Name Comments Bone cancer Father Alzheimer's disease Mother Breast cancer Mother Osteoporosis Mother Stroke Mother Osteoporosis Sister Relation Name Status Comments Father Mother Sister Social History Tobacco Use Types Packs/Day Years Used Date Smoking Tobacco: Former Cigarettes Q uit: 1999 Smokeless Tobacco: Never Alcohol Use Standard Drinks/Week Comments Yes 0 (1 standard drink = 0.6 oz pur e alcohol) socially Intimate Partner Violence Answer Date R ecorded Insults You Not on file 12/04/2020 Threatens You Not on file 12/04/2020 Screams at You Not on file 12/04/2020 Physically Hurt Not on file 12/04/2020 Intimate Partner Violence Score Not on file 12/04/2020 Alcohol Use Answer Date Recorded Alcohol Use Status Yes 03/15/2023 Depression Answer Date Recorded PHQ Total Score 0 03/14/2023 Stress Answer Date Recorded Stress in your Life Not on file 12/23/2023 Dealing with Stress 3 12/23/2023 Comments Unknown Sex and Gender Information Value Date Recorded Sex Assigned at Female 08/02/2021 1:23 PM CDT Legal Sex Female 10:47 AM CDT Gender Identity Female 08/02/2021 1:23 PM CDT Sexual Orientation Not on file Last Filed Vital Signs Vital Sign Reading Time Taken Comments Blood Pressure 142/84 03/15/2023 1:59 PM WIRE TURNING MACHINE OPERATOR Pulse 67 03/15/2023 1:59 PM WIRE TURNING MACHINE OPERATOR Temperature 35.9 C (96.7 F) 03/15/2023 1:59 PM WIRE TURNING MACHINE OPERATOR Respiratory Rate 20 03/15/2023 1:59 PM WIRE TURNING MACHINE OPERATOR Oxygen Saturation 98% 03/15/2023 1:59 PM WIRE TURNING MACHINE OPERATOR Inhaled Oxygen Concentration - - Weight 74.8 kg (164 lb 12.8 oz) 03/15/2023 1:59 PM WIRE TURNING MACHINE OPERATOR Height 171.5 cm (5' 7.5 ) 03/15/2023 1:59 PM WIRE TURNING MACHINE OPERATOR Body Mass Index 25.43 03/15/2023 1:59 PM WIRE TURNING MACHINE OPERATOR Plan of Treatment Health Maintenance Due Date Last Done Comments Hepatitis C Screening 1956 Hep B Infection Screening - Triple Screen 1974 Tetanus Diphtheria and Pertussis Immunization (1 - Tdap) 1975 Colorectal Cancer Screening 1986 Osteoporosis screening DEXA 2006 Pneumococcal: 65+ Years (1 of 1 - PCV) 2006 Covid-19 Immunization (4 - 2023- season) 2023 09/15/2021, 02/17/2021, 04/13/2020, Additional history exists Dental Cleaning/Exam 12/22/2023 12/21/2022 Annual Preventive Exam 03/15/2024 03/15/2023 Breast Cancer Screening 05/25/2024 05/26/19 24, 05/26/2023, 05/05/2022 Zoster Immunization Completed 04/18/2019, 9 Influenza Immunization Completed 4, 02/20/2023, 12/08/2022, Additional history exists HIB Immunization Aged Out No longer e ligible based on patient's age to complete this topic HPV Immunization Aged Out No longer e ligible based on patient's age to complete this topic Hepatitis A Immunization Aged Out No longer eligible based on patient's age to complete this topic Hepatitis B Immunization Aged Out No longer eligible based on patient's age to complete this topic Polio Immunization Aged Out No longer eligible based on patient's age to complete this topic Insurance NO COPAY NB Care Teams Button Spindler Relationship Specialty Start Date End Date Jethro Jain MD [place], [place] PCP - General Pottery Kiln Builder 08/03/21
--- OUTSIDE RECORDS SUMMARY | 2024-06-29 07:21 | XMS_ITS | Clinical Summary ---
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 Gender Identity Not on file Sexual Orientation Not on file Plan of Treatment Health Maintenance Due Date Last Done Comments DTAP/TDAP/TD VACCINES (1 - Tdap) 1975 FIT-DNA Q 3 years 2001 FIT/FOBT Q 1 year 2001 Flex Sig/CT Colonography Q 5 years 2001 PNEUMOCOCCAL VACCINE 50+ YEA RS (1 of 1 - PCV) 2006 ZOSTER VACCINE (1 of 2) 2006 BREAST CANCER SCREENING 05/06/2023 05/06/19 23, 05/05/2022, 04/05/2021, Additional history exists INFLUENZA VACCINE (#1) 2023 11/30/2021, 2019 OSTEOPOROSIS SCREENING 05/06/2027 3, 05/05/2022, 12/05/2019, Additional history exists COLORECTAL SCREENING 11/16/2027 11/15/2017 Colorectal Cancer Screening 11/16/2027 RSV VACCINE (60+ or ) (1 - 1-dose 75+ series) 2031 Insurance
--- OUTSIDE RECORDS SUMMARY | 2024-06-29 07:21 | XMS_ITS | Encounter Summary ---
Author Organization [facility] Address [address] [place] [address] Care Team Providers Care Radar Signal Processing Engineer Name Role Phone Unavailable Primary Care Provider Unavailabl e Encounter Details Date Type Department Care Team (Latest Contact Info) Description 11/24/1998 Outpatient Historical [facility] Eliezer Martinez MD NO ADDRESS ON FILE Female stress incontinence (Primary Dx) Social History Tobacco Use Types Packs/Day Years Used Date Smoking Tobacco: Never Assessed Comments Unknown Sex and Gender Information Value Date Recorded Sex Assigned at Not on file Legal Sex Female 2:47 AM DRAW HAND Gender Identity Not on file Sexual Orientation Not on file documented as of this encounter Plan of Treatment Not on file documented as of this encounter Visit Diagnoses Diagnosis Female stress incontinence- Primary documented in this encounter
--- OUTSIDE RECORDS SUMMARY | 2024-06-29 07:21 | XMS_ITS | Encounter Summary ---
Author Organization [facility] Address [address] [place] [address] Care Team Providers Care Clay Stain Mixer Name Role Phone Unavailable Primary Care Provider Unavailabl e Encounter Details Date Type Department Care Team (Latest Contact Info) Description 01/12/1999 Inpatient Historical [facility] Reynold Peacock Ala, MD [address] [place] [address] Other disorder of menstruation and other abnormal bleeding from female genital tract (Primary Dx) Social History Tobacco Use Types Packs/Day Years Used Date Smoking Tobacco: Never Assessed Comments Unknown Sex and Gender Information Value Date Recorded Sex Assigned at Not on file Legal Sex Female 2:47 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
--- OUTSIDE RECORDS SUMMARY | 2024-06-29 07:21 | XMS_ITS | Patient Health Record ---
Author Organization 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 Name Role Phone MARIAH FISHER Unavailable [phone] Aneudy Bolanos Unavailable Unavailable Allergies Allergen (clinical drug ingredient) Drug/Non Drug Allergy documented on EMR Reaction Allergy Type Onset Date Status gatifloxacin Tequin (uncoded) Unknown Allergy 03/29/2012 active Benzoin Unknown Drug Allergy 03/29/2012 active Ceftin Unknown Drug Allergy 03/29/2012 active clindamycin Cleocin Unknown Drug Allergy 03/29/2012 acti ve Reason For Referral No Information Medications Medication SIG (Take, Route, Frequency, Duration) Notes Start Date End Date Status diclofenac sodium 0.01 MG/MG Topical Gel [Voltaren] CUTANEOUS diclofenac sodium 0.01 MG/MG Topical Gel [Voltaren]Original Medicationdiclofenac sodium 0.01 MG/MG Topical Gel [Voltaren] *[facility] from [facility] and Interaction Alert[facility]* 4 Unknown amphetamine aspartate 2.5 MG / amphetamine sulfate 2.5 MG / dextroamphetamine saccharate 2.5 MG / dextroamphetamine sulfate 2.5 MG Oral Tablet [Adderall] ORAL amphetamine aspartate 2.5 MG / amphetamine sulfate 2.5 MG / dextroamphetamine saccharate 2.5 MG / dextroamphetamine sulfate 2.5 MG Oral Tablet [Adderall]Original Medicationamphetamine aspartate 2.5 MG / ampheta 7 Unknown Vital Signs Height-cm 172.72 cm 12/25/2023 Weight-kg 69.4 kg 12/25/2023 Height 68.00 in 12/25/2023 Weight 153 lbs 12/25/2023 BMI 23.26 kg/m2 12/25/2023 Encounters Encounter Location Date Provider Diagnosis [facility] [address] [place], [place] [id number] 12/25/2023 MARIAH EDATENBURG Plantar fasciitis M72.2 ; Other acquired deformities of right foot M21.6X1 and Pain in right foot M79.671 [facility] [address] [place], [place] [id number] 01/15/2024 MARIAH EDATENBURG Plantar fasciitis M72.2 ; Other acquired deformities of right foot M21.6X1 and Pain in right foot M79.671 Assessments Encounter Date Diagnosis (ICD Code) Assessment Notes Treatment Notes Treatment Clinical Notes Section Notes 12/25/2023 Other acquired deformities of right foot (ICD-10 - M21.6X1) 12/25/2023 Plantar fasciitis (ICD-10 - M72.2) 01/15/2024 Plantar fasciitis (ICD-10 - M72.2) Orthotic dispense: The orthotic devices were dispensed and fitted. It was noted that the orthotic conformed well to the patients foot in the subtalar joint neutral position. 01/15/2024 Other acquired deformities of right foot (ICD-10 - M21.6X1) 12/25/2023 Pain in right foot (ICD-10 - M79.671) 01/15/2024 Pain in right foot (ICD-10 - [...] 15 minutes as needed Plan Of Treatment No Information Insurance Providers Payer Name Payer Address Payer Phone Subscriber Number Group Number Insured Name Patient Relationship to Insured Coverage Start Date Coverage End Date [address] [address] [place], [place] [id number] CARLOS MORIN Self - patient is the insured Medical (General) History Medical History History ICD Code acid reflux GERD Leg/Feet cramps high blood pressure
--- OUTSIDE RECORDS SUMMARY | 2024-06-29 07:21 | XMS_ITS | Clinical Summary ---
Author Organization [facility] [employer] Address [address] [place] [address] Care Team Providers Care Cso Name Role Phone Jethro Jain Primary Care Provider [phone] Source Comments [facility] [employer],non-owned Affiliates and Associated Physician Practices is amultiple site organization consisting of ambulatory clinics and hospital sitesin [place], [place], [place] and [place]. This disclosure is being madepursuant to the Care Everywhere program and may not contain all information available regarding this patient. Last updated 17.[facility] [employer] Allergies Active Allergy Reactions Criticality Noted Date Comments Benzoin Rash Medium Cefuroxime GI Discomfort Low stomach pain Clindamycin Other Medium 03/18/2016 stomach pain Lactose Nausea and/or Vomiting Low 11/07/2022 Levofloxacin Nausea and/or Vomiting 09/17/2018 stomach pain Meloxicam Itching 09/17/2018 Morphine Nausea and/or Vomiting Low 08/03/2021 Mirabegron Itching 09/14/2022 Gatifloxacin-D5w Other 09/17/2018 Mouth sores stomach pain Medications * Be aware that medications may not be up to date on this document. Alwaysverify current medications with the patient. omeprazole (PRILOSEC) 20 MG capsule Take 1 (one) capsule by mouth daily before breakfast Active amphetamine-dex troamphetamine (ADDERALL) 20 MG tablet Take 1 (one) tablet by mouth every morning Active Cholecalciferol (VITAMIN D3 PO) Acti ve calcium carbonate (Caltrate 600) 600 MG tablet Take 1 (one) tablet by mouth once daily Active MAGNESIUM PO Active Cyanocobalamin (VITAMIN B-12 PO) Active MULTIPLE VITAMINS PO Active polyethylene glycol 3350 (MiraLax) 17 g packet Take by mouth once daily Active ALPRAZolam (Xanax) 0.25 MG tablet Take 1 (one) tablet by mouth once daily as needed FOR ANXIETY 3 Active dicyclomine (Bentyl) 20 MG tablet Take 1 (one) tablet by mouth 4 times daily 120 tablet 11 3 Active lisinopril (Prinivil; Zestril) 20 MG tablet Take 1 (one) tablet by mouth once daily 30 tablet 20 3 Active Active Problems Problem Noted Date Diagnosed Date Esophageal hiatus hernia 11/08/2022 024 Early satiety 11/02/2022 04/19/2023 Epigastric pain 11/02/2022 04/19/2023 Cholecystitis 08/17/2022 08/17/2022 Chronic idiopathic constipation 08/17/2022 08/17/2022 Overview (08/17/2022): Last Assessment & Plan: Will give her trial of Motegrity 2 mg daily. This might help greatly with her feeling of bloating and abdominal distension in addition to her constipation problem. She has been on Amitiza and has variable bowel movements. In general this works well but she does have occasional diarrhea and occasional episodes in which is less effective. Urinary frequency 07/08/2022 08/17/2022 Overview (08/17/2022): Last Assessment & Plan: Will send urine for culture. Recommended she use vaseline to vaginal opening/vula and inside vagina a couple times a day to help skin heal. Will await urine results. Will call pt with results. Osteoporosis 05/16/2022 04/19/2023 Overview (04/19/2023): 2020 - pt's BDM worse--counseled. Spine T score of -1.5. left femoral neck T score of -2.1. 2022-BMD is worse. Spine T-score of-2.4, total hip T-score -2.6 Patient referred to bone specialist Abdominal pain 04/03/2022 08/17/2022 Overview (08/17/2022): Last Assessment & Plan: As the stools are described as sometimes yellow or pale, will add stool pancreatic elastase to exclude pancreatic insufficiency. Urethral sphincter deficiency, intrinsic (ISD) 0 03/17/2022 08/17/2022 Overview (08/17/2022): Added automatically from request for surgery [id number] Anal sphincter incontinence 01/07/202207/22 Overview (08/17/2022): Referred to Drs. Soni. Declines PT Last Assessment & Plan: Referred to Drs. Soni. Declines PT Urgency of urination 01/07/2022 08/17/2022 Overview (08/17/2022): Counseled at length about her urgency and mixed incontinence. 01/[address] Mckinnon.... Intrinsic Sphincter deficiency/ stress incontinence... cont Oxybutynin, plan PT and Urodynamics. Last Assessment & Plan: Counseled at length about her urgency and mixed incontinence. 12/2021 Trial vesicare and referred to urology. Chronic pansinusitis 05/25/2021 08/17/2022 GERD without esophagitis 08/19/2019 023 Overview (08/17/2022): Last Assessment & Plan: Improved. Continue omeprazole [...] could potentially do direct laryngoscopy if needed. Vaginal odor 09/17/2018 PFD (pelvic floor dysfunction) 09/17/2018 Urge incontinence of urine 09/17/2018 Atrophic vaginitis 05/18/2018 08/17/2022 Overview (08/17/2022): pt wants to avoid anything hormonal... 07/2018 [...] guidelines, vaginal prebiotics, PT for pelvic floor 2018 - Seen by [facility] - rec: [...] another opinion form urolgy. Pt referred to [facility]. Irritable bowel syndrome wit h both constipation and diarrhea 09/29/2017 04/19/2023 Overview (04/19/2023): Last Assessment & Plan: Continue Amitiza b.i.d.. Follow-up with nurse practitioner and [facility] 1 year. Last Assessment & Plan: The [...] anal manometry testing regarding the constipation issues. Resolved Problems Problem Noted Date Diagnosed Date Resolved Date Constipation 09/17/2018 10/15/2018 Family History Medical History Relation Name Comments Cancer - Prostate Father mets to te sticles, bone CAD (Coronary Artery Disease) Mother CVA Mother Cancer - Breast Mother Dementia Mother CAD (Coronary Artery Disease) Paternal Grandmother Relation Name Status Comments Father Maternal Grandfather Maternal Grandmother Mother Paternal Grandfather Paternal Grandmother Social History Tobacco Use Types Packs/Day Years Used Date Smoking Tobacco: Former Cigarettes 1 15 1 986 - 2000 Smokeless Tobacco: Never Tobacco Cessation:Counseling Given: Not Answered Alcohol Use Standard Drinks/Week Comments Yes 0 (1 standard drink = 0.6 oz pur e alcohol) occ PHQ-2 Answer Date Recorded Patient Health Questionnaire-2 Score 0 04/18/2023 Comments No Sex and Gender Information Value Date Recorded Sex Assigned at Female 10/28/2022 11:11 AM CDT Legal Sex Female 6:16 AM [employer]STRUCTION [employer] Gender Identity Female 10/28/2022 11:11 AM CDT Sexual Orientation Not on file Last Filed Vital Signs Vital Sign Reading Time Taken Comments Blood Pressure 130/72 05/02/2023 2:33 PM CDT Pulse 60 08/21/2020 1:47 PM CDT Temperature 36.5 C (97.7 F) 05/02/2023 2:33 PM CDT Respiratory Rate - - Oxygen Saturation - - Inhaled Oxygen Concentration - - Weight 73.2 kg (161 lb 6.4 oz) 05/02/2023 2:33 P M CDT Height 170.2 cm (5' 7 ) 05/02/2023 2:33 PM CDT Body Mass Index 25.28 05/02/2023 2:33 PM CDT Plan of Treatment Health Maintenance Due Date Last Done Comments COLOGUARD (AGES 45-75) - COLON CA SCREENING [address] COLONOGRAPHY - COLON CA SCREENING 1955 FIT - COLON CA SCREENING 1955 FLEX SIG - COLON CA SCREENING 1955 LIPID TESTING 1956 HEPATITIS C SCREENING 03/16/1974 DTAP/TDAP/TD VACCINES (1 - Tdap) 1975 PNEUMOCOCCAL VACCINE 50+ (1 of 1 - PCV) 2006 ZOSTER VACCINE (1 of 2) 2006 SCREENING FOR DIABETES 04/19/2023 COVID-19 VACCINE ( - season) 2023 09/15/2021, 02/17/2021, 04/13/2020, Additional history exists DEPRESSION SCREENING 02/21/2024 04/19/2023 MAMMOGRAM 05/05/2024 05/05/2022, 04/20, 05/05/2022, Additional history exists INFLUENZA VACCINE (Season Ended) 2024 12/03/2019, 12/03/2018 Respiratory Syncytial Virus (RSV) Vaccine Pt: or over 60 yrs (1 - 1-dose 75+ series) 2031 COLONOSCOPY - COLON CA SCREENING 10/14/2031 10/13/2021 Colorectal Cancer Screening 10/14/2031 BONE DENSITY TESTING Completed 05/05/2022, 12/05/2019, 08/13/2018, Additional history exists HEPATITIS B VACCINE Aged Out No longe r eligible based on patient's age to complete this topic HIB VACCINE Aged Out No longer eligi ble based on patient's age to complete this topic HPV VACCINE Aged Out No longer eligi ble based on patient's age to complete this topic MENINGOCOCCAL (Group B) VACCINE SHARED DECISION-MAKING Aged Out No longer eligible based on patient's age to complete this topic MENINGOCOCCAL GROUPS A/C/Y/W VACCINE Aged Out No longer eligible based on patient's age to complete this topic Insurance [facility] Care Teams Cso Relationship Specialty Start Date End Date Jethro Jain DO [address] [place] [address] PCP - General 07/31/18
[2024-06-29 08:20] LABS: Basophils Percent Auto 0.7 % (0.2-1.2); Eosinophils Absolute Auto 0.3 K/mm3 (0-0.3); Eosinophils Percent Auto 4.8 % (0-4.4); Hematocrit 43.7 % (37.0-47.0); Hemoglobin 13.7 g/dL (12.0-15.0); Immature Granulocyte Absolute 0.02 K/mm3 (0.00-0.031); Immature Granulocyte Percent A 0.3 % (0-0.5); Lymphocytes Absolute Auto 1.89 K/mm3 (0.9-3.2); Lymphocytes Percent Auto 32.5 % (18.3-44.2); Mean Corpuscular HGB Conc 31.4 g/dl (32-36); Mean Corpuscular Hemoglobin 29.1 pg (26-34); Mean Corpuscular Volume 92.8 fl (80-100); Mean Platelet Volume 9.6 fl (7.4-10.4); Monocytes Absolute Auto 0.5 K/mm3 (0.1-0.6); Monocytes Percent Auto 8.1 % (2.6-8.5); Neutrophils Absolute Auto 3.1 K/mm3 (1.3-6.7); Neutrophils Percent Auto 53.6 % (45.5-73.1); Platelet Count Result 366 k/mm3 (150-375); Red Blood Count 4.71 M/mm3 (4.2-5.4); Red Cell Distribution Width 12.6 % (11.5-14.5); White Blood Count 5.8 K/mm3 (4.5-10.0)
[2024-06-29 08:44] LABS: Alanine Aminotransferase 24 U/L (6-35); Albumin Level 4.3 g/dL (3.5-5.1); Alkaline Phosphatase 84 U/L (38-126); Anion Gap 5 mmol/L (4-12); Aspartate Amino Transferase 31 U/L (14-36); Bilirubin,Total 0.5 mg/dL (0.2-1.3); Blood Urea Nitrogen 13 mg/dL (7-17); Calcium 8.9 mg/dL (8.4-10.2); Carbon Dioxide 30 mmol/L (22-30); Chloride 104 mmol/L (98-107); Cholesterol 202 mg/dL (0-200); Estimated Glomerular Filt Rate > 60; Glucose 105 mg/dL (65-110); HDL Direct 61 mg/dL; Potassium 4.4 mmol/L (3.4-5.0); Sodium 139 mmol/L (137-145); Triglycerides 77 mg/dL (<150)
[2024-06-29 08:55] LABS: LDL Cholesterol Direct 96 mg/dL
[2024-06-29 09:48] LABS: Free T4 Free Thyroxine 1.04 ng/dL (0.78-2.19); Vitamin D 25 Hydroxy 39.9 ng/mL
[2024-06-29 09:49] LABS: Hemoglobin A1C 5.4 % (<5.7)
== END 2024-06-29 07:17 | disposition home or self-care (01) ==
LOC: ANHLAB 07:18
PROVIDERS: PCP Internal Medicine; Visit Provider Internal Medicine
DX: E03.9 Hypothyroidism, unspecified (principal); R73.9 Hyperglycemia, unspecified; R10.9 Unspecified abdominal pain; Z13.21 Encounter for screening for nutritional disorder; Z13.220 Encounter for screening for lipoid disorders
CPT/HCPCS: 36415; 80053; 80061; 82306; 83036; 84439; 84443; 85025

== ENCOUNTER 2024-11-29 17:37 | Emergency (ER) | payer OTHER, SELFPAY ==
[2024-11-29 17:58] VITALS: BP 126/72; PULSE 77; RESP 18; TEMP 37.2; O2SAT 99
--- NOTE | 2024-11-29 18:39 | ED.URI ---
HPI - URI/Sore Throat General Chief Complaint: Upper Respiratory Infection Stated Complaint: cough/chest tightness Time Seen by Provider: 11/29/24 18:15 Source: patient, RN notes reviewed and old records reviewed Mode of arrival: ambulatory Limitations: no limitations History of Present Illness HPI Narrative: 69 year old female who presents to [facility] care with complaints of non productive cough with chest congestion for the past 5 days, Patient reports that she has had sore throat, chills, body aches, headaches, and sinus drainage. Patient reports that she has been taking Coricidin brand decogestant, Tylenol and also Delsym for her cough with no improvement.Patient reports no shortness of breath SAO2 99% on room air. She reports no know ill contacts. MD elicited complaint: cough, sore throat, rhinorrhea, nasal congestion and other (chills body aches and headaches.) Onset (ago): day(s) (5) Consistency: progressively worsening Severity: moderate Able to tolerate fluids by mouth: Yes Treatments prior to arrival: acetaminophen and other (Delsym cough syrup and Coricidin decongestant) Related Data Home Medications ?Medication ?Instructions ?Recorded ?Confirmed ?Last Taken ?Type magnesium oxide 400 mg (241.3 mg 241.3 mg PO DAILY 11/03/23 06/28/24 Unknown History magnesium) tablet metformin 500 mg tablet,extended 500 mg PO QPM 11/03/23 06/28/24 Unknown History release 24 hr plecanatide 3 mg tablet (Trulance) 3 mg PO DAILY 11/29/24 Unknown History Allergies Allergy/AdvReac Type Severity Reaction Status Date / Time benzoin Allergy Unknown Unknown Verified 11/29/24 18:17 cefuroxime Allergy Unknown Nausea Verified 11/29/24 18:17 clindamycin Allergy Unknown Nausea Verified 11/29/24 18:17 gatifloxacin Allergy Unknown SORES IN Verified 11/29/24 18:17 MOUTH levofloxacin Allergy Unknown Nausea Verified 11/29/24 18:17 meloxicam Allergy Unknown Rash Verified 11/29/24 18:17 mirabegron (From Myrbetriq) Allergy Unknown Unknown Verified 11/29/24 18:50 prednisone Allergy Unknown Other Verified 11/29/24 18:17 Review of Systems Review of Systems: CONSTITUTIONAL: reports general malaise, fever, chills, or sweats. EYES: Denies visual changes, redness, or discharge. ENT: reports rhinorrhea, congestion, sore throat, no otalgia. CARDIOVASCULAR: Denies chest pain, palpitations, or edema. RESPIRATORY: Reports harsh cough no dyspnea. GASTROINTESTINAL: Denies abdominal pain, nausea, vomiting, or diarrhea. GENITOURINARY: Denies dysuria or hematuria. SKIN: Denies rash or itching. MUSCULOSKELETAL: Denies back pain, joint pain, or myalgia. NEUROLOGIC: reports headache,no numbness, or weakness. PSYCHIATRIC: Denies anxiety or depression. All systems reviewed & are unremarkable except as noted in HPI and below PMFSH Past Medical History Medical History ADD (attention deficit disorder) Pneumonia IBS (irritable bowel syndrome) Esophageal reflux disease Hypothyroidism Surgical History Surgical History History of cholecystectomy 04/05/22 History of medial meniscus repair of right knee S/P excision of lipoma from left clavicale area History of carpal tunnel release with ulnar nerve release on right H/O bladder repair surgery History of hysterectomy Family History Family History Mother Cerebrovascular accident, Onset Age: 86 Patient's mother is Father Family history of malignant neoplasm of bone, Onset Age: 72 Social History Social History Smoking status: Never smoker Second hand tobacco smoke exposure: No Smoking end date: 02/21/96 Alcohol intake: current Substance use: never Current Housing: Decline to Answer Concerned About Future Housing: Decline to Answer Difficulty Paying Gas/Electric Bills: Decline to Answer Difficulty Paying for Meds: Decline to Answer Currently Unemployed: Decline to Answer Education: Decline to Answer Difficulty w/ Childcare or Family Care: Decline to Answer Living arrangements: alone Gender identity (if verbalized by the patient): Female Comments At time of signature, agree with nursing past medical, surgical, social and family history. There is no relevant family history pertinent to the presenting complaint Exam Narrative: GENERAL: Ill appearing, well-nourished, and in no acute distress. HEAD: Normocephalic, atraumatic. EYES: PERRLA and EOMI. ENT: Nares clear, clear to yellow rhinorrhea, sinus pressure and headache, no epistaxis. Mucous membranes moist.TM's normal with good light reflex, throat red with pain NECK: Supple.no lymphadenopathy CHEST: Clear to auscultation. No respiratory distress. frequent loose sounding cough SAO2 99% on room air no tachypnea HEART: Regular rate and rhythm. No murmur heard. Normal peripheral pulses. ABDOMEN: Soft, nontender, nondistended, normal active bowel sounds. EXTREMITIES: Normal range of motion. No edema. SKIN: Warm, dry, no rash. NEURO: No focal deficits. Alert and oriented x3. Course Course Emergency Course: Patient is aware of diagnosis, understands and agrees to treatment plan.? Anticipatory guidance given.? Patient agrees to follow-up as directed and is aware of reasons to seek care at the emergency department. Portions of this record may have been created with voice recognition software Level of Care: Express Care Visit Vital Signs Vital signs: Vital Signs Temperature 37.2 C 11/29/24 17:58 Pulse Rate 77 11/29/24 17:58 Respiratory Rate 18 11/29/24 17:58 Blood Pressure 126/72 11/29/24 17:58 Pulse Oximetry 99 11/29/24 17:58 Oxygen Delivery Room Air 11/29/24 17:58 Temperature 37.2 C 11/29/24 17:58 Pulse Rate 77 11/29/24 17:58 Respiratory Rate 18 11/29/24 17:58 Blood Pressure 126/72 11/29/24 17:58 Pulse Oximetry 99 11/29/24 17:58 Oxygen Delivery Room Air 11/29/24 17:58 Reviewed MDM - URI/Sore Throat Differential Diagnosis Differential diagnosis: Likely upper respiratory infection, viral infection, pharyngitis and other (strep pharyngitis, acute cough) Medical Records Attestation: I reviewed the patient's medical records. Lab Data Attestation: I reviewed the patient's lab results. Lab results narrative: strep screen negative, culture sent Labs: Lab Results 11/29/24 Range/Units 18:46 POC Grp A Strep Screen Negative (Negative) reviewed Critical Care Time Critical Care Time Critical Care Time: No Discharge Plan Discharge Clinical Impression: Acute cough Sinusitis Qualifiers: Sinusitis location: pansinusitis Chronicity: acute Recurrence: not specified as recurrent Qualified Code(s): J01.40 - Acute pansinusitis, unspecified Patient Disposition: Home Condition: Stable Instructions: Antibiotic Form, Sinusitis (ED), Acute Cough (ED) Additional Instructions: Increase fluids especially juices and water [id number] cough and cold medicine of your choice for your symptoms Prescription cough medicine as directed--caution drowsiness and no driving or alcohol Zyrtec Claritin or Gina daily with Coricidin HBP decongestant heat to the face 20-30 minutes 4-6 times a day for pain Salt water gargles, throat lozenges or throat sprays as desired Antibiotic as directed--finished the medication Tylenol or ibuprofen for any fever pain for package directions If your symptoms persist, change or worsen significantly before you can contact your personal physician then please, without delay, go to the emergency department for further evaluation. Follow-up with PCP in 7-10 days or sooner if needed Patient Language: Jordanian Prescriptions: New amoxicillin-pot clavulanate 875-125 mg tablet 1 tablet PO Q12H Qty: 20 0RF Rx Instructions: take with food, take with probiotic or eat Activia yogurt while taking this medication codeine-guaifenesin 10-100 mg/5 mL liquid 10 ml PO Q4-6H PRN (Reason: cough) Qty: 120 0RF No Action magnesium oxide 400 mg (241.3 mg magnesium) tablet 241.3 mg PO DAILY metformin 500 mg tablet extended release 24 hr 500 mg PO QPM Trulance 3 mg tablet 3 mg PO DAILY dicyclomine 10 mg capsule 10 mg PO BID PRN (Reason: IBS) Qty: 60 1RF omeprazole 40 mg capsule,delayed release(DR/EC) 40 mg PO DAILY Qty: 90 2RF lisinopril 20 mg tablet See Rx Instructions .ROUTE .COMPLEX Qty: 90 0RF Dose Instruction: TAKE 1 TABLET BY MOUTH DAILY Rx Instructions: TAKE 1 TABLET BY MOUTH DAILY Follow-up/Referrals: Primitivo Swann DO [Primary Care Provider, Internal Medicine] Time of Disposition: 18:54 Quality Crispin Coma Scale Eyes: Open Verbal: Oriented and Alert Motor: Follows Commands Crispin Coma Total Score: 15
[2024-11-29 18:49] LABS: EDSTREPNEGPOS1 Negative (Negative)
== END 2024-11-29 19:02 | disposition home or self-care (01) ==
PROVIDERS: Emergency Provider Registered Nurse; PCP Internal Medicine
DX: R05.1 Acute cough (principal); J01.40 Acute pansinusitis, unspecified; E03.9 Hypothyroidism, unspecified; K21.9 Gastro-esophageal reflux disease without esophagitis; Z87.891 Personal history of nicotine dependence
CPT/HCPCS: 87081; 87880; 99213; G0463